=== PATIENT | female | born 1985 | race Two or more races ===

== ENCOUNTER 2024-11-07 14:44 | Emergency (ER) | payer MEDICAID, SELFPAY ==
[2024-11-07 14:44] VITALS: BMI 34.3
--- NOTE | 2024-11-07 14:56 | XR_ITS ---
Examination: CT brain head without contrast. 2-D sagittal coronal reconstructions Date and time of exam:November 07, 2024, 1534 hrs., Comparison February 24, 2020. Indications: Seizure today CTDI: vol (mGy):55.2 DLP: (mGycm):1151 Technique: Multiple CT axial sections of the brain have been obtained, 5 mm slice thickness. Contrast has not been administered. 2-D sagittal, coronal reconstructions have been obtained Low dose protocols were performed. One or more of the following dose reduction techniques were used; automated exposure control, adjustment of the mA and/or KV according to patient size, use of iterative reconstruction technique. Findings: Left temporal bone and right posterior parietal bone craniotomy defects No neural transmitter leads in the temporal lobes with extensive encephalomalacia in the left temporal lobe Numerous artifacts No gross hemorrhage or mass effect Impression: Limited study. No gross hemorrhage or mass effect
--- NOTE | 2024-11-07 14:57 | PD.EDSEIZ ---
ED Seizures RME/HPI General Chief Complaint: Seizure Stated Complaint: 3-4 SEIZURES TODAY Time Seen by Provider: 11/07/24 14:57 Arrival date/time: 11/07/24 14:44 RME / HPI RME / HPI Narrative: DR. 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 Denies history of daily seizures. Denies chest pain, shortness of breath, and abdominal pain. Patient recently moveed from [place], [place] and states that she needs to find a new neurologist. She is currently taking Lamotrigine, Sertraline, Fycompa, Topomax, and Cenobamate. Related Data Previous Rx's ?Medication ?Instructions ?Recorded hcnpnkexim-anwcopxbebhxj-ccmgevps 1 cap PO Q8H PRN pain #30 caps 02/25/20 50 mg-300 mg-40 mg capsule (Fioricet) Allergies Allergy/AdvReac Type Severity Reaction Status Date / Time adhesive tape Allergy Severe Hives Verified 11/07/24 14:48 latex Allergy Severe Hives Verified 11/07/24 14:47 morphine Allergy Severe Swelling Verified 11/07/24 14:47 of Lip/Tongue/Throat Review of Systems Review of Systems Systems Reviewed: All systems reviewed, normal except as documented Past Medical History Past Medical History NEUROLOGIC: Positive Seizures (Pt has Neuropace is a cranial implant) and Epilepsy CARDIAC: Positive Hypertension Surgical History SURGICAL: Positive Neurologic Surgery (hemispherectomy per Pt) Social History SMOKING STATUS: Current every day smoker ED Exam Narrative Physical exam: GEN. APPEARANCE: The patient is alert awake oriented X-3 in no distress, lying down comfortably, does not look ill/toxic. Patient has good eye contact. Patient is cooperative. Slow to respnd, Actively vomiting. Patient is acutely ill-appearing. VITALS: All vitals were reviewed and the pulse ox is 98% on room air which is normal according to my interpretation. HEENT: Normocephalic, atraumatic. Pupils are equal and reactive. Oral mucosa is moist. Patent Nares NECK: Supple, nontender, no thyromegaly, no meningismus, no JVD CHEST: Symmetrical, atraumatic, and with equal expansion , Nontender on palpation no deformity and no crepitus. CARDIOVASCULAR: Heart regular rhythm no murmur or gallop rub or extra beats. LUNGS: Clear to auscultation bilaterally with symmetrical chest rise. No laboring tachypnea or wheezing. No intercostal subcostal retraction. No rales and no rhonchi. ABDOMEN: Soft, flat, nontender to palpation, no guarding or rebound tenderness. There are no abnormal masses palpated. Active and normal bowel sounds. EXTREMITIES: Nontender. No edema. No cyanosis. Patient is able to move all 4 extremities well, with full ROM and good CSM. SKIN: Warm and dry, no jaundice or rashes noted. MUSCULOSKELETAL: No lumbar or midline bony tenderness. There is no CVA tenderness. No paraspinal muscle spasm or tenderness. NEURO: Patient is REID x 4, Cranial nerves II through XII grossly intact. There is no focal neurologic deficits noted. GCS is 15, PNS and HOME APPRAISER appear grossly intact. PSYCHIATRIC: Patient is in normal mood and affect. Course Quality Measures none Orders Category Date Time Status Insert IV NOW Care 11/07/24 15:[address] head/brain wo con Stat Exams 11/07/24 14:56 Completed CBC Stat Lab 11/07/24 15:01 Completed CMP [Comprehensive Metabolic Panel] Stat Lab 11/07/24 15:01 Completed Drug Screen,Urine Stat Lab 11/07/24 17:57 Completed HCG,Qualitative Serum Stat Lab 11/07/24 15:01 Completed Lipase Stat Lab 11/07/24 15:01 Completed UA, C/S IF [Urinalysis, C/S if Indicated] Stat Lab 11/07/24 17:57 Completed Acetaminophen Tab [Tylenol Tab] Med 11/07/24 15:59 Discontinued 650 mg PO X1 ONE Ringers Lactated 1000 ml [Lactated Ringers] 1,000 ml Med 11/07/24 15:59 Discontinued IV 999 mls/hr levETIRAcetam INJ [Keppra Inj] Med 11/07/24 14:56 Discontinued 1,000 mg IVP X1 ONE oxyCODONE/APAP 5/325 [Percocet 5/325] Med 11/07/24 17:35 Discontinued 1 tab PO X1 ONE Vital Signs Vital signs: Vital Signs Temperature 98.7 F 11/07/24 15:09 Pulse Rate 99 11/07/24 15:09 Respiratory Rate 16 11/07/24 15:09 Blood Pressure 127/107 H 11/07/24 15:09 Pulse Oximetry (%) 98 11/07/24 15:09 Oxygen Delivery Method Room Air 11/07/24 15:09 Seizure MDM Narrative MDM Narrative:: Scribe Attestation: I, Geraldine Leahy, am scribing for and in the presence of Dr. Guardado. Provider Notation: Although this document has been carefully reviewed, there may still be some phonetic and other typographical errors. These errors are purely grammatical due to imperfections in the software program and should not be construed in any way to compromise the substance of the patient's medical care during this visit. Patient is in the ED with concern for breakthrough seizure. Has a hx of epilepsy, has been having difficulty taking home medications as she recently moved to the area to help her mother recover from recent NSTEMI following the of her . Ordered CT, labs, provided meds for symptom relief. Workup reassuring. Patient not septic, no evidence of intracranial hemorrhage. Had extensive conversation with patient and her brother at bedside. Brother states he is working on helping to coordinate a PCP and neurologist for patient here in the region. He is doing what he can to help offset the pressures the patient is under at the time. Patient is GCS15, not in any distress. Remained w/o any recurrence of seizure activity while in the ED. Patient data External records reviewed:: [facility] previous records (No recent ED records available for review.) Clinical information provided by:: patient Social determinants that could affect healthcare access:: none Patient has the following chronic illnesses:: Seizures, Epilepsy, Hypertension How is presenting disease/condition affected by chronic disease/condition?: exacerbated by Evaluation data The following diagnostics were reviewed and interpreted by me:: lab results and radiology exam(s) Lab and/or radiology exams considered but not ordered:: None Interpretation Summary: RADIOLOGY Head/Brain CT: Findings: Left temporal bone and right posterior parietal bone craniotomy defects No neural transmitter leads in the temporal lobes with extensive encephalomalacia in the left temporal lobe Numerous artifacts No gross hemorrhage or mass effect Impression: Limited study. No gross hemorrhage or mass effect Medications / Prescriptions Medications or Prescriptions considered but not ordered:: None Medication administrations:: Medication Administration History Discontinued Medications Acetaminophen (Acetaminophen 325 Mg Tablet) 650 mg PO X1 ONE Stop: 11/07/24 16:00 Last Admin: 11/07/24 16:04 Dose: 650 mg Documented By: DIAN Lactated Ringer's (Lactated Ringers) 1,000 mls @ 999 mls/hr IV .Q1H1M ONE Stop: 11/07/24 16:59 Last Admin: 11/07/24 16:09 Dose: 999 mls/hr Documented By: DIAN Levetiracetam (Levetiracetam Inj 100 Mg/Ml Vial 5ml) 1,000 mg IVP X1 ONE Stop: 11/07/24 14:57 Last Admin: 11/07/24 15:08 Dose: 1,000 mg Documented By: DIAN Oxycodone/Acetaminophen (Oxycodone/Apap 5/325 Tablet) 1 tab PO X1 ONE Stop: 11/07/24 17:36 Last Admin: 11/07/24 18:06 Dose: 1 tab Documented By: DIAN See above if any. Consultations Consultation(s) initiated? (list below): No Diagnosis Seizure Differential Diagnosis: intractable seizure disorder, febrile convulsion, focal seizure, generalized seizure, epileptic seizure and status epilepticus Most likely diagnosis given after review of the tests above:: Breakthrough seizure, Headache Admission Indicated Admission indicated?: not indicated Explain why admission is indicated or not indicated:: Patient does not meet admission criteria. Admission Request Was there a request for admission?: No Disposition Plan Disposition Plan: Discharge Discharge Attestation Discharge Attestation: The patient and all family members were given an opportunity to ask questions and understood the discharge instructions. Discharge instructions specifically effects, indications for sooner follow up or return to the emergency department, and the expected course of current diagnosis. Patient condition: Stable Critical Care Time Critical Care Time Critical Care Time: Yes Total Critical Care Time (min.): 45 Attestation: ?I spent 45 minutes of critical care time with this patient not including reportable procedures. There was an acute impairment of an organ system with a high probability of imminent or life threatening deterioration in the patient's condition. Interventions and changes required in the course of therapy are located in the chart. Time involved was spent in direct patient care, reviewing ancillary data, old records, consulting with decision makers, EMS, other doctors, giving orders and documenting. Discharge Plan Plan Patient Disposition: HOME (Self Care) Prescriptions/Referrals Prescriptions/Med Rec: No Action zuvrfowmtv-nypkfrvbvedzl-ehss [Fioricet] 50-300-40 mg capsule 1 cap PO Q8H PRN (Reason: pain) Qty: 30 0RF Referrals: No Primary/Family,Physician [Primary Care Provider] - In 1 week Problem List Clinical Impression: Breakthrough seizure, Headache Patient/Caregiver Discharge Instructions Education Materials: Living Well with Epilepsy, Self-Care for Headaches Additional Instructions: Follow-up with your primary care provider in 1-2 days. Return immediately if symptoms worsen or persist. It is very important that you establish care with a neurologist as quickly as possible. Print Language: Armenian Stand Alone Forms: [employer] Award Info., Patient Portal Info Letter
[2024-11-07] MEDS: levETIRAcetam INJ 100 MG/ML VIAL 5ML 1000 MG IVP (15:08)
[2024-11-07 15:09] VITALS: BP 127/107; PULSE 99; RESP 16; TEMP 37.1; O2SAT 98
[2024-11-07 15:14] LABS: Basophils # (Auto) 0.1 Thou/mm3 (0.0-0.2); Basophils % (Auto) 0 % (0-2.5); Eosinophils # (Auto) 0.0 Thou/mm3 (0.0-0.5); Eosinophils % (Auto) 0 % (0-10); Hematocrit 40.6 % (36.0-46.0); Hemoglobin 13.9 g/dL (12.0-16.0); Immature Granulocytes Auto 0.04 Thou/mm3 (0.00-0.00); Lymphocytes # (Auto) 1.1 Thou/mm3 (1.0-4.8); Lymphocytes % (Auto) 10 % (10-50); Mean Corpuscular HGB Conc 34.2 g/dl (31.0-37.0); Mean Corpuscular Hemoglobin 34.3 pg (25.0-35.0); Mean Corpuscular Volume 100 fL (80-100); Monocytes # (Auto) 0.5 Thou/mm3 (0.0-0.8); Monocytes % (Auto) 4 % (0-12); Neutrophils # (Auto) 9.5 Thou/mm3 (1.8-7.7); Neutrophils % (Auto) 85 % (37-80); Nucleated Red Blood Cell # 0.00 Thou/mm3 (0.00-0.00); Nucleated Red Blood Cell % 0 /100 WBC (0); Platelet Count 354 Thou/mm3 (140-440); RDW Standard Deviation 62.0 fL (36.4-46.3); Red Blood Count 4.05 Miln/mm3 (4.00-5.20); White Blood Count 11.2 Thou/mm3 (3.6-11.0)
--- NOTE | 2024-11-07 15:17 | PC.NURSE ---
SEIZURES PADS PLACED IN RAILS
[2024-11-07] MEDS: ACETAMINOPHEN 325 MG TABLET 650 MG PO (16:04)
[2024-11-07] MEDS: RINGERS LACTATED 1000 ML 1,000 ML 999 ML IV (16:09)
[2024-11-07 16:15] LABS: Alanine Aminotransferase 77 U/L (10-49); Albumin, Serum 4.8 gm/dL (3.5-5.0); Albumin/Globulin Ratio 1.5 (1.2-2.2); Alkaline Phosphatase 108 U/L (46-116); Anion Gap 16 (7-16); Aspartate Amino Transferase 165 U/L (0-34); BUN/Creatinine Ratio 8 Ratio (12-20); Bilirubin,Total 0.4 mg/dL (0.3-1.2); Blood Urea Nitrogen 6 mg/dL (9-23); Calcium 10.4 mg/dL (8.3-10.6); Calcium (Corrected) 10.4 mg/dL (8.5-10.1); Carbon Dioxide 18.6 mMol/L (20.0-31.0); Chloride 103 mMol/L (98-107); Creatinine (Component) 0.8 mg/dL (0.6-1.3); Estimated Creatinine Clearance 101.0 mL/min (>60); Globulin 3.2 gm/dL (2.3-3.5); Glucose 154 mg/dL (74-106); Lipase 67 U/L (12-53); Osmolality,Calculated 276 (275-295); Potassium 4.6 mMol/L (3.4-5.1); Sodium 138 mMol/L (136-145); Total Protein 8.0 gm/dL (5.7-8.2); eGFR > 60 See Note
[2024-11-07 16:40] LABS: HCG,Qualitative Serum Negative
[2024-11-07 17:23] VITALS: BP 133/91; PULSE 80; RESP 18; O2SAT 94
[2024-11-07 17:27] VITALS: TEMP 36.8
[2024-11-07 18:02] LABS: Collection Type, Urine Clean Catch
[2024-11-07 18:10] LABS: Amorphous Crystals,Urine Present (Absent); Bilirubin,Urine Negative (Negative); Blood,Urine Negative (Negative); Clarity,Urine Turbid (Clear/Hazy); Color,Urine Yellow (Lt Yel-Yel); Culture Indicated,Urine Not Indicated; Glucose, Urine Negative (Negative); Ketones,Urine 3+ (Negative); Leukocyte Esterase,Urine Negative (Negative); Nitrite,Urine Negative (Negative); PH,Urine 6.0 (5.0-7.0); Protein,Urine 1+ (Neg - Trace); RBC,Urine 4 /hpf (0-3); Specific Gravity,Urine 1.036 (1.001-1.035); Squamous Epithelial Cell,Urine 11 /hpf (0-5); Urobilinogen,Urine 2.0 mg/dL (0.0-1.0); WBC,Urine 4 /hpf (0-5)
[2024-11-07 18:11] VITALS: BP 154/104; PULSE 78; RESP 24; TEMP 36.6; O2SAT 98
[2024-11-07 18:13] LABS: Amphetamine/Methamp Scrn,U Negative (Negative); Barbiturate Screen,Urine Negative (Negative); Benzodiazepines Screen,Urine Negative (Negative); Benzoylecgonine Screen, Ur Negative (Negative); Fentanyl Screen,Urine Negative (Negative); Opiate Screen,Urine Negative (Negative); THC Screen,Urine Negative (Negative)
[2024-11-07 18:38] VITALS: BP 148/96; PULSE 88; RESP 16; TEMP 36.6; O2SAT 99
== END 2024-11-07 18:39 | disposition home or self-care (01) ==
PROVIDERS: Emergency Provider Emergency Medicine
DX: G40.909 Epilepsy, unspecified, not intractable, without status epilepticus (principal); R51.9 Headache, unspecified; I10 Essential (primary) hypertension; Z79.899 Other long term (current) drug therapy
CPT/HCPCS: 36415; 70450; 80053; 80307; 81001; 83690; 84703; 85025; 96374; 99284; J1953; J7120; A9270

== ENCOUNTER 2024-11-16 21:15 | Emergency (ER) | payer MEDICAID, SELFPAY ==
[2024-11-16 21:17] VITALS: BP 129/79; PULSE 72; RESP 18; TEMP 37; O2SAT 98
--- NOTE | 2024-11-16 21:30 | PD.EDADULT ---
ED General RME/HPI General Chief complaint: Seizure Stated complaint: seizure Time Seen by Provider: 11/16/24 21:28 Arrival date/time: 11/16/24 21:15 CC: Reported 6 seizures HPI patient has a history of seizures takes her medications but is also reported by family to be drinking alcohol today. Patient is awake alert with slurred speech denies any physical pain. EMS report stable vital signs and route. Patient is currently on lamotrigine sertraline Fycompa and Cenobamate. Review the medical record show the patient was here 9 days ago for the same complaint including multiple seizures. Patient moved here from [place] state and is looking for local neurologist. Related Data Home Medications ?Medication ?Instructions ?Recorded ?Confirmed cenobamate 100 mg tablet (Xcopri) 300 mg PO HS 11/17/24 11/17/24 lamotrigine 150 mg tablet 150 mg PO Q12H 11/17/24 11/17/24 perampanel 10 mg tablet (Fycompa) 10 mg PO HS 11/17/24 11/17/24 sertraline 100 mg tablet 100 mg PO QDAY 11/17/24 11/17/24 topiramate 50 mg tablet 50 mg PO Q12H 11/17/24 11/17/24 Previous Rx's ?Medication ?Instructions ?Recorded topiramate 100 mg tablet (Topamax) 100 mg PO BID #60 tabs 11/17/24 Allergies Allergy/AdvReac Type Severity Reaction Status Date / Time adhesive tape Allergy Severe Hives Verified 11/07/24 14:48 latex Allergy Severe Hives Verified 11/07/24 14:47 morphine Allergy Severe Swelling Verified 11/07/24 14:47 of Lip/Tongue/Throat Review of Systems Review of Systems ROS Unobtainable: unobtainable due to medical condition Past Medical History Past Medical History NEUROLOGIC: Positive Seizures (Pt has Neuropace is a cranial implant) and Epilepsy CARDIAC: Positive Hypertension; Negative Congestive Heart Failure RESPIRATORY: Negative Chronic Obstructive Pulmonary Disease (COPD) GENITOURINARY: Negative Renal Disease ENDOCRINE: Negative Diabetes Mellitus Type 1 or Diabetes Mellitus Type 2 Surgical History SURGICAL: Positive Neurologic Surgery (hemispherectomy per Pt) Social History SMOKING STATUS: Current every day smoker ED Exam Narrative Physical exam: [General: Obese, appears not in any acute distress Head normocephalic HEENT: Within acceptable limits Neck is supple nontender Chest equal chest rise nontender to palpation Respiratory: Clear to auscultation no wheezes crackles or rubs CV: Rate rhythm is regular no murmurs rubs or clicks Abdomen is distended secondary to body habitus soft nontender no masses positive bowel sounds all 4 quadrants Back: No CVA tenderness no spinous process tenderness from cervical spine thoracic and lumbar spine Skin: Intact no petechiae rash induration ulceration or crepitus Extremities: Moving all extremity against resistance cap refill less than 2 seconds neurosensory intact Neuro: Awake alert oriented x1, self, slurred speech, Glascow coma 14 no focal deficits] Course Quality Measures none Orders Category Date Time Status Saline [Insert IV] NOW Care 11/16/24 21:28 Active Alcohol, Blood Medical Stat Lab 11/16/24 21:43 Completed B-Type Natriuretic Peptide Stat Lab 11/16/24 21:43 Completed CBC Stat Lab 11/16/24 21:43 Completed Comprehensive Metabolic Panel Stat Lab 11/16/24 21:43 Completed Drug Screen,Urine Stat Lab 11/16/24 22:25 Completed HCG Qualitative,Urine Stat Lab 11/16/24 22:25 Completed Magnesium Stat Lab 11/16/24 21:43 Completed Partial Thromboplastin Time Stat Lab 11/16/24 23:28 Completed Prothrombin Time with INR Stat Lab 11/16/24 23:28 Completed Urinalysis, C/S if Indicated Stat Lab 11/16/24 22:25 Completed Sodium Chloride 0.9% 1000 ml [Ns] 1,000 ml Med 11/16/24 21:29 Discontinued IV 999 mls/hr levETIRAcetam INJ [Keppra Inj] Med 11/16/24 21:49 Discontinued 1,000 mg IVP X1 ONE Vital Signs Vital signs: Vital Signs Temperature 98.6 F 11/16/24 21:17 Pulse Rate 72 11/16/24 21:17 Respiratory Rate 18 11/16/24 21:17 Blood Pressure 129/79 11/16/24 21:17 Pulse Oximetry (%) 98 11/16/24 21:17 Oxygen Delivery Method Room Air 11/16/24 21:17 Discharge Plan Plan Patient Disposition: HOME (Self Care) Prescriptions/Referrals Prescriptions/Med Rec: New topiramate [Topamax] 100 mg tablet 100 mg PO BID Qty: 60 0RF No Action perampanel [Fycompa] 10 mg tablet 10 mg PO HS Xcopri 100 mg tablet 300 mg PO HS lamotrigine 150 mg tablet 150 mg PO Q12H Patient Comments: TAKE 1 TABLET BY MOUTH TWICE DAILY sertraline 100 mg tablet 100 mg PO QDAY topiramate 50 mg tablet 50 mg PO Q12H Patient Comments: TAKE 1 TABLET BY MOUTH TWICE DAILY Referrals: Isaias Bedoya MD [Physician, Neurology] - In 1 week Referral Note: Patient with longstanding seizure disorder with indwelling neurostimulator on multiple medications requiring follow-up. Problem List Clinical Impression: Epilepsy, Alcohol intoxication Patient/Caregiver Discharge Instructions Discharge Activity: activity as tolerated Other Activity Instructions:: Avoid high risk activities i.e. cycling, scooter, activities which potentially can cause head injury Education Materials: Discharge Instructions for Epilepsy, ED Alcohol Intoxication Additional Instructions: Increase Topamax from 50 mg twice daily to 100 mg twice daily. Continue all other anticonvulsants at same dosage. Follow-up with neurologist within 1 to 2 weeks and return if worsening. Additionally ,reduce alcohol consumption. Print Language: Kazakh Stand Alone Forms: [employer] Award Info., Patient Portal Info Letter MDM Clinical Information Provided by patient and EMS Medical Records Reviewed [facility] and EMS Meds/Rx Considered, not Ordered None Labs/Rad/Tests considered, not Ordered None Chronic Illness/Social Conditions Add or document further as needed: Seizure disorder Lab Interpretation Lab(s) interpretation(s): CBC shows no acute leukocytosis anemia thrombocytopenia CMP shows a chloride of 111 CO2 of 17.9 BUN of less than 5. No other electrolyte imbalances. T. bili is unremarkable AST at 132 ALT of 73 alk phos at 80. Alcohol level 309 Medication Administration(s) Medication Administration History Discontinued Medications Sodium Chloride (Ns) 1,000 mls @ 999 mls/hr IV .Q1H1M ONE Stop: 11/16/24 22:29 Last Infusion: 11/16/24 22:50 Dose: Infused Documented By: Admin: 11/16/24 21:44 Dose: 999 mls/hr Documented By: SIERRA Levetiracetam (Levetiracetam Inj 100 Mg/Ml Vial 5ml) 1,000 mg IVP X1 ONE Stop: 11/16/24 21:50 Last Admin: 11/16/24 22:01 Dose: 1,000 mg Documented By: CCT
[2024-11-16] MEDS: SODIUM CHLORIDE 0.9% 1000 ML 1,000 ML 999 ML IV (21:44)
[2024-11-16 21:49] VITALS: PULSE 70; RESP 20; O2SAT 97; BMI 34.3
[2024-11-16 21:59] LABS: Basophils # (Auto) 0.1 Thou/mm3 (0.0-0.2); Basophils % (Auto) 1 % (0-2.5); Eosinophils # (Auto) 0.1 Thou/mm3 (0.0-0.5); Eosinophils % (Auto) 1 % (0-10); Hematocrit 36.0 % (36.0-46.0); Hemoglobin 12.0 g/dL (12.0-16.0); Immature Granulocytes Auto 0.03 Thou/mm3 (0.00-0.00); Lymphocytes # (Auto) 3.2 Thou/mm3 (1.0-4.8); Lymphocytes % (Auto) 36 % (10-50); Mean Corpuscular HGB Conc 33.3 g/dl (31.0-37.0); Mean Corpuscular Hemoglobin 34.4 pg (25.0-35.0); Mean Corpuscular Volume 103 fL (80-100); Monocytes # (Auto) 0.6 Thou/mm3 (0.0-0.8); Monocytes % (Auto) 7 % (0-12); Neutrophils # (Auto) 4.9 Thou/mm3 (1.8-7.7); Neutrophils % (Auto) 55 % (37-80); Nucleated Red Blood Cell # 0.00 Thou/mm3 (0.00-0.00); Nucleated Red Blood Cell % 0 /100 WBC (0); Platelet Count 194 Thou/mm3 (140-440); RDW Standard Deviation 62.4 fL (36.4-46.3); Red Blood Count 3.49 Miln/mm3 (4.00-5.20); White Blood Count 8.9 Thou/mm3 (3.6-11.0)
[2024-11-16] MEDS: levETIRAcetam INJ 100 MG/ML VIAL 5ML 1000 MG IVP (22:01)
[2024-11-16 22:14] LABS: B-Type Natriuretic Peptide 28 pg/mL (0-100)
[2024-11-16 22:24] LABS: Alanine Aminotransferase 73 U/L (10-49); Albumin, Serum 4.3 gm/dL (3.5-5.0); Albumin/Globulin Ratio 1.4 (1.2-2.2); Alcohol, Blood Medical 309.3 mg/dL (0-10.0); Alkaline Phosphatase 80 U/L (46-116); Anion Gap 15 (7-16); Aspartate Amino Transferase 132 U/L (0-34); BUN/Creatinine Ratio 8 Ratio (12-20); Bilirubin,Total 0.2 mg/dL (0.3-1.2); Blood Urea Nitrogen < 5 mg/dL (9-23); Calcium 9.0 mg/dL (8.3-10.6); Calcium (Corrected) 9.0 mg/dL (8.5-10.1); Carbon Dioxide 17.9 mMol/L (20.0-31.0); Chloride 111 mMol/L (98-107); Creatinine (Component) 0.6 mg/dL (0.6-1.3); Estimated Creatinine Clearance 134.6 mL/min (>60); Globulin 3.0 gm/dL (2.3-3.5); Glucose 95 mg/dL (74-106); Magnesium 2.2 mg/dL (1.6-2.6); Osmolality,Calculated 284 (275-295); Potassium 3.8 mMol/L (3.4-5.1); Sodium 144 mMol/L (136-145); Total Protein 7.3 gm/dL (5.7-8.2); eGFR > 60 See Note
[2024-11-16 22:38] LABS: Collection Type, Urine Clean Catch; RBC,Urine 0 /hpf (0-3)
[2024-11-16 22:52] LABS: HCG Qualitative,Urine Negative
[2024-11-16 22:54] LABS: Amphetamine/Methamp Scrn,U Negative (Negative); Barbiturate Screen,Urine Negative (Negative); Benzodiazepines Screen,Urine Negative (Negative); Benzoylecgonine Screen, Ur Negative (Negative); Fentanyl Screen,Urine Negative (Negative); Opiate Screen,Urine Negative (Negative); THC Screen,Urine Negative (Negative)
[2024-11-16 23:00] VITALS: BP 95/58; PULSE 82; RESP 18; TEMP 36.9; O2SAT 97
[2024-11-16 23:12] LABS: Bilirubin,Urine Negative (Negative); Blood,Urine Negative (Negative); Clarity,Urine Clear (Clear/Hazy); Color,Urine Colorless (Lt Yel-Yel); Culture Indicated,Urine Not Indicated; Glucose, Urine Negative (Negative); Ketones,Urine Negative (Negative); Leukocyte Esterase,Urine Negative (Negative); Nitrite,Urine Negative (Negative); PH,Urine 6.0 (5.0-7.0); Protein,Urine Negative (Neg - Trace); Specific Gravity,Urine 1.006 (1.001-1.035); Squamous Epithelial Cell,Urine 1 /hpf (0-5); Urobilinogen,Urine Negative mg/dL (0.0-1.0); WBC,Urine < 1 /hpf (0-5)
[2024-11-16 23:53] LABS: INR 1.0 (0.9-1.3); Partial Thromboplastin Time 25.4 Seconds (22.0-36.0); Prothrombin Time 10.9 Seconds (9.0-12.2)
--- NOTE | 2024-11-17 01:00 | PD.EDADDENDU ---
Emergency Room Addendum Addendum Narrative: 2300: Care assumed from Shahram Castellanos NP (emergency mied-level provider). Past medical, surgical, social and family history reviewed. Vitals and home medications reviewed. Results and treatment plan discussed. I will assume the care of the patient at this time and will follow the patient, pending reassessment and final disposition. The following addendum documentation note is intended to reflect any pending information, findings, or radiology results not included in the patient?s initial chart by the previous shift scribe. Assuming care of this 38 y/o female with long-standing history of seizure disorder who is on multiple seizure medications. Patient was seen on 11/07/2024 for possible breakthrough seizure activity. Who underwent Ct of the brain which was without evidence of acute process and after period of observation discharge under own accord. Now presenting with recurrent seizure with significant recent psycho-social stressors. Patient apparently drinking throughout the lorraine and appeared to be inebriated upon presentation. Basic workup conducted including CBC, serum chemistries, UA, and Toxicology screen, all were unremarkable with the exception of ethanol 309.3 and MCV 103. Upon direct query patient states she can abstain from long periods of time without alcohol without withdrawal. Patient observed for extended period of time and currently appropriately interacting. Will review current anti-convulsant medication list and consider adjustment while referring for outpatient neurological evaluation as patient has a brain stimulator in place and will require close F/U. Patient remained seizure-free throughout ED course. Will increase Topiramate 50 mg BID to 100 mg BID. I have spoken with the patient and discussed today?s findings, in addition to providing specific details for the plan of care. Questions are answered and there is an agreement with the plan. Re-assessment at the time of disposition demonstrates that the patient is in no acute distress. The patient has remained stable throughout the entire ED visit and is without objective evidence for acute process requiring urgent intervention or hospitalization. The patient is stable for discharge; counseling is provided and documented as above, discussed symptomatic treatment and specific conditions for return.
[2024-11-17 02:40] VITALS: BP 108/73; PULSE 69; RESP 17; TEMP 36.8; O2SAT 98
[2024-11-17 06:00] VITALS: BP 110/76; PULSE 70; RESP 18; TEMP 36.6; O2SAT 95
[2024-11-17 07:08] VITALS: BP 141/88; PULSE 68; RESP 18; TEMP 36.9; O2SAT 97
== END 2024-11-17 07:08 | disposition home or self-care (01) ==
LOC: SERX 11-17 03:52
PROVIDERS: Registered Nurse General Practice; Emergency Provider Emergency Medicine
DX: G40.909 Epilepsy, unspecified, not intractable, without status epilepticus (principal); F10.129 Alcohol abuse with intoxication, unspecified; Y90.8 Blood alcohol level of 240 mg/100 ml or more
CPT/HCPCS: 36415; 80053; 80307; 80320; 81001; 81025; 83735; 83880; 85025; 85610; 85730; 96374; 99283; J1953; J7030; G0480

== ENCOUNTER 2024-11-21 12:30 | Emergency (ER) | payer MEDICAID, SELFPAY ==
[2024-11-21] VITALS (7 sets, daily range): BP systolic 123–167; BP diastolic 72–99; PULSE 66–93; RESP 16–20; TEMP 36.7–37.1; O2SAT 97–100; BMI 34.3
--- NOTE | 2024-11-21 12:46 | PC.NURSE ---
Patient to ER s/p seizure at home witnessed by family no trauma, h/o sz. Currently patient alert and oriented x 4, c/o 9/10 generalized headache. Patient states she has shunt in her brain and has had partial temporal lobe removed. In addition, patient was seen on with seizure activity and had trauma at that time. Patient noted to have bruising and abrasion to right forehead, Dr. Guzman at bedside to evalulate patient.
--- NOTE | 2024-11-21 12:48 | EDNOTE_ITS ---
ED Seizures RME/HPI General Chief Complaint: Seizure Stated Complaint: SEIZURE Time Seen by Provider: 11/21/24 12:36 Arrival date/time: 11/21/24 12:30 Limitations: no limitations RME / HPI RME / HPI Narrative: DR. GUZMAN MAIN ED EVALUATION: 39-year-old female with past medical history of seizures presents to the Emergency Department status post seizure lasting approximately 3 minutes. She denies trauma today; however, she has an old bruise on the right forehead and a bump on the left arm from a prior seizure on November 17. She reports occasional alcohol use and nicotine vaping, previously a smoker. She denies headache or other acute symptoms. Related Data Home Medications ?Medication ?Instructions ?Recorded ?Confirmed cenobamate 100 mg tablet (Xcopri) 300 mg PO HS 5 11/17/24 lamotrigine 150 mg tablet 150 mg PO Q12H 11/17/2411/02 perampanel 10 mg tablet (Fycompa) 10 mg PO HS 11/17/24 11/17/24 sertraline 100 mg tablet 100 mg PO QDAY 11/17/2411/02 topiramate 50 mg tablet 50 mg PO Q12H 11/17/2411/17 Previous Rx's ?Medication ?Instructions ?Recorded topiramate 100 mg tablet (Topamax) 100 mg PO BID #60 t abs 11/17/24 Allergies Allergy/AdvReac Type Severity Reaction Status Date / Time adhesive tape Allergy Severe Hives Verified 11/21/24 13:12 latex Allergy Severe Hives Verified 11/21/24 13:12 morphine Allergy Severe Swelling Verified 11/21/24 13:12 of Lip/Tongue/Throat Review of Systems Review of Systems Systems Reviewed: All systems reviewed, normal except as documented Past Medical History Past Medical History NEUROLOGIC: Positive Neurological Disorders, Seizures and Epilepsy CARDIAC: Positive Cardiac Disorders and Hypertension Surgical History SURGICAL: Positive Neurologic Surgery Social History SMOKING STATUS: Current some day smoker (nicotine vaping, previously a smoker) SUBSTANCE USE: does not use ALCOHOL: Current (occasional alcohol use) ED Exam General Limitations: Present no limitations General appearance: Present alert, in no apparent distress and other (Slowed, halting speech but intact ability to form words and sentences) Head Head exam: Present other (right occipital shunt in place; healing right forehead ecchymosis) Eye Eye exam: Present normal appearance, PERRL and EOMI ENT ENT exam: Present normal exam, normal oropharynx and mucous membranes moist Neck Neck exam: Present normal inspection, full ROM and trachea midline Chest Chest inspection: Present normal inspection and symmetric chest wall rise Respiratory Respiratory exam: Present normal lung sounds bilaterally Cardiovascular Cardiovascular exam: Present regular rate, normal rhythm and normal heart sounds Abdominal Exam Abdominal exam: Present soft and normal bowel sounds Extremities Exam Extremities exam: Present full ROM and other (bump on the left arm) Back Exam Back exam: Present normal inspection and full ROM Neurological Exam Neurological exam: Present other (Slowed, halting speech but intact ability to form words and sentences) Psychiatric Psychiatric exam: Present normal affect and normal mood Skin Skin exam: Present warm, dry, intact and normal color Course Quality Measures none Orders Category Date Time Status Roofer Applicator NOW Care 11/21/24 12:47 Active Continuous Pulse Oximetry NOW Care 11/21/24 12:47 Completed Insert IV NOW Care 11/21/24 12:47 Active Seizure precautions NOW Care 11/21/24 13:04 Active Splint / Immobilizer STAT Care 11/21/24 17:[address] wrist LT wo con Stat Exams 11/21/24 15:30 Completed XR chest 1V portable Stat Exams 11/21/24 12:47 Completed XR wrist comp LT min 3V Stat Exams 11/21/24 12:48 Completed CBC Stat Lab 11/21/24 12:58 Completed Comprehensive Metabolic Panel Stat Lab 11/21/24 12:58 Completed HCG Qualitative,Urine Stat Lab 11/21/24 13:20 Completed Prothrombin Time with INR Stat Lab 11/21/24 12:58 Completed Urinalysis Stat Lab 11/21/24 13:20 Completed Acetaminophen Tab [Tylenol Tab] Med 11/21/24 15:29 Discontinued 650 mg PO X1 ONE Ketorolac Inj [Toradol Inj] Med 11/21/24 16:41 Discontinued 15 mg IVP X1 ONE Sodium Chloride 0.9% 1000 ml [Ns] 1,000 ml Med 11/21/24 12:47 Discontinued IV 999 mls/hr levETIRAcetam INJ [Keppra Inj] Med 11/21/24 12:47 Discontinued 1,000 mg IVP X1 ONE Oxygen Delivery NOW RT 11/21/24 12:47 Active Vital Signs Vital signs: Vital Signs Temperature 98.0 F 11/21/24 12:31 Pulse Rate 93 11/21/24 12:31 Respiratory Rate 18 11/21/24 12:31 Blood Pressure 167/99 H 11/21/24 12:31 Pulse Oximetry (%) 99 11/21/24 12:31 Oxygen Delivery Method Nasal Cannula 11/21/24 12:31 Oxygen Flow Rate 1 11/21/24 12:31 PROCEDURES: Splint Fabrication: Pre-Fabricated Type: Other (left arm splint) Reason for Splint: Pain Management and Minimize Deformities Circulation Distal to Splint: Yes Movement Distal to Splint: Yes Senation Distal to Splint: Yes Tolerance: Tolerates Well Seizure MDM Narrative MDM Narrative:: I, Leann Whalen, am scribing for and in the presence of Dr. Guzman. Patient data External records reviewed:: [facility] previous records and EMS form Clinical information provided by:: patient and EMS Social determinants that could affect healthcare access:: other (specify) (occasional alcohol use and nicotine vaping, previously a smoker) Patient has the following chronic illnesses:: seizures How is presenting disease/condition affected by chronic disease/condition?: exacerbated by Evaluation data The following diagnostics were reviewed and interpreted by me:: lab results and radiology exam(s) Lab and/or radiology exams considered but not ordered:: none Interpretation Summary: Procedure(s): XR chest 1V portable Accession Number(s): [id number] cc: Josh Guzman MD; Tristan Acosta MD~ Examination: AP chest single view Technique: AP portable upright chest single view Date and time: November 21, 2024, 1305 hrs. Indications: Coughing today. Findings: Mild prominence left ventricle. No pneumonia or pulmonary edema Impression: No pneumonia identified. Dictated By: Tristan Acosta MD Procedure(s): XR wrist comp LT min 3V Accession Number(s): [id number] cc: Josh Guzman MD; Tristan Acosta MD~ Examination: Wrist, left 3 views Technique: Wrist AP, oblique, lateral 3 views Date and time of exam: November 21, 2024, 1306 hrs. Indications: Injury to the wrist today, wrist pain Findings: No definite acute fracture Suspicious for lunate capitate dislocation No foreign body Impression: Recommend CT wrist without contrast follow-up to exclude carpal dislocation and to better assess the deformed lunate Dictated By: Tristan Acosta MD Procedure(s): CT wrist LT wo con Accession Number(s): [id number] cc: Josh Guzman MD; Tristan Acosta MD; NO PRIMARY/FAMILY,PHYSICIAN~ Examination: CT left breast, without contrast. 2-D sagittal reconstructions. 2-D coronal reconstructions. 3-D reconstructions. Date and time of exam:Injury to the wrist today with pain CTDI: vol (mGy):4.02 DLP: (mGycm):83.3 Technique: Multiple 1.25 mm axial sections of the left wrist without intravenous contrast have been obtained. 2-D sagittal and coronal reconstructions have been obtained. 3-D reconstructions have been obtained. Low dose protocols were performed. One or more of the following dose reduction techniques were used; automated exposure control, adjustment of the mA and/or KV according to patient size, use of iterative reconstruction technique. Findings: Distal radius distal ulna intact Fractures of the lunate without significant displacement Metacarpal bases appear intact The lunate fractures show comminution, sagittal image 32 and the capitate is indenting the fractured lunate but no dislocation Impression: Prominently comminuted fractures of the lunate Dictated By: Tristan Acosta MD Medications / Prescriptions Medications or Prescriptions considered but not ordered:: none Medication administrations:: Medication Administration History Discontinued Medications Acetaminophen (Acetaminophen 325 Mg Tablet) 650 mg PO X1 ONE Stop: 11/21/24 15:30 Last Admin: 11/21/24 15:34 Dose: 650 mg Documented By: RAMOS Sodium Chloride (Ns) 1,000 mls @ 999 mls/hr IV .Q1H1M ONE Stop: 11/21/24 13:47 Last Infusion: 11/21/24 14:18 Dose: Infused Documented By: Admin: 11/21/24 13:06 Dose: 999 mls/hr Documented By: RAMOS Ketorolac Tromethamine (Ketorolac Inj 30 Mg/Ml Vial) 15 mg IVP X1 ONE Stop: 11/21/24 16:42 Last Admin: 11/21/24 17:42 Dose: 15 mg Documented By: RAMOS Levetiracetam (Levetiracetam Inj 100 Mg/Ml Vial 5ml) 1,000 mg IVP X1 ONE Stop: 11/21/24 12:48 Last Admin: 11/21/24 13:13 Dose: 1,000 mg Documented By: RAMOS see above if any Consultations Consultation(s) initiated? (list below): No Diagnosis Seizure Differential Diagnosis: other (Breakthrough seizure, postictal state, and shunt malfunction.) Most likely diagnosis given after review of the tests above:: Prominently comminuted fractures of the lunate Epileptic seizure Admission Indicated Admission indicated?: not indicated Admission Request Was there a request for admission?: No Disposition Plan Disposition Plan: Discharge Discharge Attestation Discharge Attestation: The patient and all family members were given an opportunity to ask questions and understood the discharge instructions. Discharge instructions specifically effects, indications for sooner follow up or return to the emergency department, and the expected course of current diagnosis. Patient condition: Stable Discharge Plan Plan Patient Disposition: HOME (Self Care) Patient condition on transfer: Stable Prescriptions/Referrals Prescriptions/Med Rec: No Action perampanel [Fycompa] 10 mg tablet 10 mg PO HS Xcopri 100 mg tablet 300 mg PO HS lamotrigine 150 mg tablet 150 mg PO Q12H Patient Comments: TAKE 1 TABLET BY MOUTH TWICE DAILY sertraline 100 mg tablet 100 mg PO QDAY topiramate 50 mg tablet 50 mg PO Q12H Patient Comments: TAKE 1 TABLET BY MOUTH TWICE DAILY topiramate [Topamax] 100 mg tablet 100 mg PO BID Qty: 60 0RF Referrals: No Primary/Family,Physician [Primary Care Provider] - In 1 week Problem List Clinical Impression: Left lunate fracture, Epileptic seizure Impression comment: Prominently comminuted fractures of the lunate Patient/Caregiver Discharge Instructions Discharge Activity: activity as tolerated Other Activity Instructions:: No use of the left arm Education Materials: Self-Care for Epilepsy, Living Well with Epilepsy, ED Fracture, Upper Extremity Additional Instructions: Please see your primary care doctor for a referral to an orthopedist. You have a left hand fracture of the lunate bone. Please take Tylenol 500 mg 1 to 2 tablets every 6 hours as needed for pain. You can also take Advil gelcaps 200 mg 2 gelcaps every 6 hours with the Tylenol for more effective pain control. Otherwise please continue your usual medicines including your seizure medicines. Print Language: Lao Stand Alone Forms: [employer] Award Info., Patient Portal Info Letter
[2024-11-21] MEDS: SODIUM CHLORIDE 0.9% 1000 ML 1,000 ML 999 ML IV (13:06)
--- NOTE | 2024-11-21 13:08 | PC.NURSE ---
Xray at bedside.
[2024-11-21] MEDS: levETIRAcetam INJ 100 MG/ML VIAL 5ML 1000 MG IVP (13:13)
[2024-11-21 13:18] LABS: Basophils # (Auto) 0.1 Thou/mm3 (0.0-0.2); Basophils % (Auto) 1 % (0-2.5); Eosinophils # (Auto) 0.0 Thou/mm3 (0.0-0.5); Eosinophils % (Auto) 0 % (0-10); Hematocrit 36.0 % (36.0-46.0); Hemoglobin 12.4 g/dL (12.0-16.0); Immature Granulocytes Auto 0.04 Thou/mm3 (0.00-0.00); Lymphocytes # (Auto) 1.5 Thou/mm3 (1.0-4.8); Lymphocytes % (Auto) 16 % (10-50); Mean Corpuscular HGB Conc 34.4 g/dl (31.0-37.0); Mean Corpuscular Hemoglobin 34.9 pg (25.0-35.0); Mean Corpuscular Volume 101 fL (80-100); Monocytes # (Auto) 0.5 Thou/mm3 (0.0-0.8); Monocytes % (Auto) 5 % (0-12); Neutrophils # (Auto) 7.5 Thou/mm3 (1.8-7.7); Neutrophils % (Auto) 78 % (37-80); Nucleated Red Blood Cell # 0.00 Thou/mm3 (0.00-0.00); Nucleated Red Blood Cell % 0 /100 WBC (0); Platelet Count 197 Thou/mm3 (140-440); RDW Standard Deviation 58.8 fL (36.4-46.3); Red Blood Count 3.55 Miln/mm3 (4.00-5.20); White Blood Count 9.7 Thou/mm3 (3.6-11.0)
[2024-11-21 13:29] LABS: INR 1.0 (0.9-1.3); Prothrombin Time 10.8 Seconds (9.0-12.2)
[2024-11-21 13:35] LABS: Alanine Aminotransferase 63 U/L (10-49); Albumin, Serum 4.3 gm/dL (3.5-5.0); Albumin/Globulin Ratio 1.6 (1.2-2.2); Alkaline Phosphatase 84 U/L (46-116); Anion Gap 15 (7-16); Aspartate Amino Transferase 122 U/L (0-34); BUN/Creatinine Ratio 7 Ratio (12-20); Bilirubin,Total 0.7 mg/dL (0.3-1.2); Blood Urea Nitrogen < 5 mg/dL (9-23); Calcium 9.4 mg/dL (8.3-10.6); Calcium (Corrected) 9.4 mg/dL (8.5-10.1); Carbon Dioxide 17.8 mMol/L (20.0-31.0); Chloride 104 mMol/L (98-107); Creatinine (Component) 0.7 mg/dL (0.6-1.3); Estimated Creatinine Clearance 115.4 mL/min (>60); Globulin 2.7 gm/dL (2.3-3.5); Glucose 103 mg/dL (74-106); Osmolality,Calculated 271 (275-295); Potassium 4.1 mMol/L (3.4-5.1); Sodium 137 mMol/L (136-145); Total Protein 7.0 gm/dL (5.7-8.2); eGFR > 60 See Note
[2024-11-21 13:49] LABS: Collection Type, Urine Clean Catch
[2024-11-21 14:12] LABS: Bacteria,Urine Rare; Bilirubin,Urine Negative (Negative); Blood,Urine Negative (Negative); Clarity,Urine Turbid (Clear/Hazy); Color,Urine Yellow (Lt Yel-Yel); Glucose, Urine Negative (Negative); Ketones,Urine 4+ (Negative); Leukocyte Esterase,Urine Negative (Negative); Nitrite,Urine Negative (Negative); PH,Urine 6.0 (5.0-7.0); Protein,Urine 1+ (Neg - Trace); RBC,Urine 3 /hpf (0-3); Specific Gravity,Urine 1.024 (1.001-1.035); Squamous Epithelial Cell,Urine 15 /hpf (0-5); Urobilinogen,Urine Negative mg/dL (0.0-1.0); WBC,Urine 2 /hpf (0-5)
[2024-11-21 14:33] LABS: HCG Qualitative,Urine Negative
--- NOTE | 2024-11-21 15:29 | PC.NURSE ---
Patient c/o 9/10 generalized head pain. Patient requesting pain medication and wants something to eat, Dr. Guzman made aware, new orders received and ok for patient to eat.
--- NOTE | 2024-11-21 15:30 | XR_ITS ---
Examination: CT left breast, without contrast. 2-D sagittal reconstructions. 2-D coronal reconstructions. 3-D reconstructions. Date and time of exam:Injury to the wrist today with pain CTDI: vol (mGy):4.02 DLP: (mGycm):83.3 Technique: Multiple 1.25 mm axial sections of the left wrist without intravenous contrast have been obtained. 2-D sagittal and coronal reconstructions have been obtained. 3-D reconstructions have been obtained. Low dose protocols were performed. One or more of the following dose reduction techniques were used; automated exposure control, adjustment of the mA and/or KV according to patient size, use of iterative reconstruction technique. Findings: Distal radius distal ulna intact Fractures of the lunate without significant displacement Metacarpal bases appear intact The lunate fractures show comminution, sagittal image 32 and the capitate is indenting the fractured lunate but no dislocation Impression: Prominently comminuted fractures of the lunate
[2024-11-21] MEDS: ACETAMINOPHEN 325 MG TABLET 650 MG PO (15:34)
--- NOTE | 2024-11-21 15:37 | PC.NURSE ---
Patient provided with sandwich and water.
[2024-11-21] MEDS: KETOROLAC INJ 30 MG/ML VIAL 15 MG IVP (17:42)
== END 2024-11-21 19:15 | disposition home or self-care (01) ==
PROVIDERS: Emergency Provider Family Medicine
DX: S62.122A Displaced fracture of lunate [semilunar], left wrist, initial encounter for closed fracture (principal); G40.909 Epilepsy, unspecified, not intractable, without status epilepticus; I10 Essential (primary) hypertension; F17.290 Nicotine dependence, other tobacco product, uncomplicated; Z91.040 Latex allergy status; Z88.5 Allergy status to narcotic agent; Z91.048 Other nonmedicinal substance allergy status; X58.XXXA Exposure to other specified factors, initial encounter; Y92.009 Unspecified place in unspecified non-institutional (private) residence as the place of occurrence of the external cause
CPT/HCPCS: 29125; 36415; 71045; 73110; 73200; 80053; 81001; 81025; 85025; 85610; 96361; 96374; 96375; 99284; J1885; J1953; J7030; A9270

== ENCOUNTER 2024-11-21 23:39 | Emergency (ER) | payer MEDICAID, SELFPAY ==
[2024-11-21 23:47] VITALS: PULSE 58; O2SAT 99; BMI 34.3
--- NOTE | 2024-11-21 23:50 | EDNOTE_ITS ---
ED Seizures RME/HPI General Chief Complaint: Seizure Stated Complaint: AMS Time Seen by Provider: 11/21/24 23:49 Source: EMS Arrival date/time: 11/21/24 23:39 Mode of arrival: EMS Limitations: no limitations RME / HPI RME / HPI Narrative: Mr. Molina is a 39-year-old female with past medical history of seizures and alcohol abuse who presented to [facility] emergency department with a chief complaint of seizure episode. Patient was seen earlier this morning for another seizure episode earlier this morning, was noted to have comminuted fracture of the lunate. Patient later went home had another seizure episode and presented back to the ER for further workup. Patient has history of multiple seizure episodes, was seen twice earlier this month for similar episode and medication was adjusted by ER physician on 11/16 however patient continues to have seizure episodes. Patient recently moved from [facility] and has not been established with a neurologist. Related Data Home Medications ?Medication ?Instructions ?Recorded ?Confirmed cenobamate 100 mg tablet (Xcopri) 300 mg PO HS 5 11/22/24 lamotrigine 150 mg tablet 150 mg PO Q12H 11/17/2411/03 perampanel 10 mg tablet (Fycompa) 10 mg PO HS 11/17/24 11/22/24 sertraline 100 mg tablet 100 mg PO QDAY 11/17/2411/03 cholecalciferol (vitamin D3) 50 50 mcg PO QDAY 5 11/22/24 mcg (2,000 unit) capsule (Vitamin D3) Previous Rx's ?Medication ?Instructions ?Recorded topiramate 100 mg tablet (Topamax) 100 mg PO BID #60 t abs 11/17/24 Allergies Allergy/AdvReac Type Severity Reaction Status Date / Time adhesive tape Allergy Severe Hives Verified 11/21/24 13:12 latex Allergy Severe Hives Verified 11/21/24 13:12 morphine Allergy Severe Swelling Verified 11/21/24 13:12 of Lip/Tongue/Throat Review of Systems Review of Systems Systems Reviewed: All systems reviewed, normal except as documented Past Medical History Past Medical History NEUROLOGIC: Positive Neurological Disorders, Seizures and Epilepsy CARDIAC: Positive Cardiac Disorders and Hypertension Surgical History SURGICAL: Positive Neurologic Surgery Social History SMOKING STATUS: Current some day smoker (nicotine vaping, previously a smoker) SUBSTANCE USE: does not use ALCOHOL: Current (occasional alcohol use) ED Exam General Limitations: Present no limitations General appearance: Present alert, in no apparent distress and other (Slowed, halting speech but intact ability to form words and sentences) Head Head exam: Present other (right occipital shunt in place; healing right forehead ecchymosis) Eye Eye exam: Present normal appearance, PERRL and EOMI ENT ENT exam: Present normal exam, normal oropharynx and mucous membranes moist Neck Neck exam: Present normal inspection, full ROM and trachea midline Chest Chest inspection: Present normal inspection and symmetric chest wall rise Respiratory Respiratory exam: Present normal lung sounds bilaterally Cardiovascular Cardiovascular exam: Present regular rate, normal rhythm and normal heart sounds Abdominal Exam Abdominal exam: Present soft and normal bowel sounds Extremities Exam Extremities exam: Present full ROM and other (left arm splint) Back Exam Back exam: Present normal inspection and full ROM Neurological Exam Neurological exam: Present other (Slowed, halting speech but intact ability to form words and sentences) Psychiatric Psychiatric exam: Present normal affect and normal mood Skin Skin exam: Present warm, dry, intact and normal color Course Quality Measures none Orders Category Date Time Status Pe Electrical Engineer Q4H START 00 Care 11/21/24 23:53 Active Continuous Pulse Oximetry NOW Care 11/21/24 23:53 Completed EKG (ED ONLY) *Do not use* NOW Care 11/21/24 23:53 Completed Fingerstick [Bedside Blood Glucose] NOW Care 11/21/24 23:58 Active In and Out Catheter X1 Care 11/22/24 00:11 Completed Insert IV NOW Care 11/21/24 23:53 Active Nurse Swallow Screen X1 Care 11/22/24 00:01 Active Seizure precautions NOW Care 11/22/24 00:01 Active CXRP [XR chest 1V portable] Stat Exams 11/21/24 23:57 Taken EKG (ED Only) Stat Exams 11/21/24 23:53 Ordered Alcohol, Blood Medical Stat Lab 11/21/24 23:50 Completed CBC Stat Lab 11/21/24 23:50 Completed CK [Creatine Kinase] Stat Lab 11/21/24 23:50 Completed CMP [Comprehensive Metabolic Panel] Stat Lab 11/21/24 23:50 Completed Drug Screen,Urine Stat Lab 11/22/24 00:12 Completed INR [Prothrombin Time with INR] Stat Lab 11/21/24 23:50 Completed Lactate (Lactic Acid) Stat Lab 11/21/24 23:50 Completed Lactic Acid, 3 HR Stat Lab 11/22/24 03:43 Completed Magnesium Stat Lab 11/21/24 23:50 Completed PTT [Partial Thromboplastin Time] Stat Lab 11/21/24 23:50 Completed Phosphorous Stat Lab 11/21/24 23:50 Completed Procalcitonin Stat Lab 11/21/24 23:50 Completed Urinalysis Stat Lab 11/22/24 00:12 Completed VBG [Venous Blood Gas] Stat Lab 11/21/24 23:50 Completed Acetaminophen Tab [Tylenol ES Tab] Med 11/22/24 00:02 Discontinued 500 mg PO X1 ONE Cenobamate Med 11/22/24 03:21 Pending 300 mg PO X1 ONE Folic Acid Inj Med 11/22/24 01:28 Discontinued 1 mg IVP X1 ONE HYDROcodone*/APAP 5/325 [Roff 5/325] Med 11/22/24 02:07 Pending 1 tab PO X1 ONE Naph,Kp Mbdb [Neutra-Phos Pkt] Med 11/22/24 01:30 Active 1 packet PO BID POTASSIUM CHL 10 mEq IVPB [Kcl Ivpb] Med 11/22/24 00:46 Discontinued 10 meq in 100 ml IV Q1H POTASSIUM CHL 10 mEq IVPB [Kcl Ivpb] Med 11/22/24 01:27 Discontinued 10 meq in 100 ml IV Q1H Perampanel Med 11/22/24 03:22 Pending 10 mg PO X1 ONE Potassium Chloride [K-Dur] Med 11/22/24 00:45 Discontinued 40 meq PO X1 ONE Potassium Phos [KPhos Additive] 22.5 mmol Med 11/22/24 00:47 Discontinued Sodium Chloride 0.9% 500 ml [Ns] 500 ml IV X1 Sertraline HCl [Zoloft] Med 11/22/24 09:00 Active 100 mg PO QDAY Sodium Chloride 0.9% 1000 ml [Ns] 1,000 ml Med 11/22/24 02:24 Active IV 100 mls/hr Sodium Chloride 0.9% 1000 ml [Ns] 1,000 ml Med 11/21/24 23:56 Discontinued IV 999 mls/hr Thiamine Inj [Vitamin B-1 Inj] Med 11/22/24 01:28 Discontinued 100 mg IVP X1 ONE Topiramate [Topamax] Med 11/22/24 02:45 Active 100 mg PO BID cenobamate [Xcopri] Med 11/22/24 02:30 Discontinued 300 mg PO HS lamoTRIgine [LaMICtal] Med 11/22/24 02:45 Active 150 mg PO Q12H levETIRAcetam INJ [Keppra Inj] Med 11/21/24 23:53 Discontinued 1,000 mg IVP X1 ONE perampanel [Fycompa] Med 11/22/24 02:35 Discontinued 10 mg PO HS Vital Signs Vital signs: Vital Signs Temperature 97.8 F 11/21/24 23:53 Pulse Rate 58 L 11/21/24 23:53 Respiratory Rate 16 11/21/24 23:53 Blood Pressure 126/100 H 11/21/24 23:53 Pulse Oximetry (%) 97 11/21/24 23:53 Oxygen Delivery Method Room Air 11/21/24 23:53 Seizure MDM Narrative MDM Narrative:: #Breakthrough Seizure #Seizure Disorder #Comminuted Lunate fracture #Hypokalemia #Hypophosphatemia #Transaminitis #Alcohol use disorder 39-year-old female with past medical history of seizures and alcohol abuse seen for seizure episode. Patient was seen earlier this morning for another seizure episode earlier this morning, was noted to have comminuted fracture of the lunate. Patient later went home had another seizure episode and presented back to the ER for further workup. Patient has history of multiple seizure episodes, was seen twice earlier this month for similar episode and medication was adjusted by ER physician on 11/16 however patient continues to have seizure episodes. Patient recently moved from [facility] and has not been established with a neurologist. Workup: CBC: WBC 9.6, hemoglobin 11.6 hematocrit 33.9, platelet 208 Coags INR 1.0 PTT APTT normal VBG pH 7.46 pCO2 24 pO2 106 Chemistry sodium 139 potassium 2.9 bicarb 16.3 BUN 8 creatinine 0.6 GFR greater than 60 glucose 87 lactic acid 2.7 phosphorus 1.9 corrected calcium 9.1 magnesium 1.7, AST 82 ALT 50 total CK1 1 1, alk phos 74, Pro-Derick 0.11 Urinalysis shows ketones 2+ otherwise unremarkable U tox negative, blood alcohol level 68.6 EKG Sinus rate 80 Chest x-ray negative for any acute pneumonia Patient was given Keppra 1000 mg x 1, 1 L NS bolus 500 Tylenol p.o. x 1, 40 mEq of potassium 20 mEq IV thiamine 100 mg and folic acid 1 mg IV push x 1 0155 discussed with hospitalist team, further comminuted fracture of jairon hospitalist team is requesting orthopedic consult as Ortho was not available at this facility will reach out to other facilities. Wrist CT 11/21: Prominently comminuted fractures of the lunate Patient was given her home medication perampanel, lamotrigine, topiramate and Xcopri Case discussed with hospitalist team and attending physician Dr. Champion, as patient has blood alcohol level positive there is a concern that her alcohol use is triggering seizure episodes. Case was sent to [facility] for outpatient orthopedic referral per transfer center [facility] patient does not need emergent transfer and they will provide outpatient resources. Patient will be discharged home to follow-up with [facility] where she will be referred to neurology and orthopedic surgery as needed. Patient encouraged to quit alcohol Case discussed with Attending Physician Dr.Kim Shawn Arroyo MD Internal Medicine PGY-2 Disclaimer: This note was dictated by speech recognition. Minor errors in steam distribution supervisor may be present due to voice recognition software. Patient data External records reviewed:: [facility] previous records and EMS form Clinical information provided by:: patient Social determinants that could affect healthcare access:: alcohol use Patient has the following chronic illnesses:: as Above How is presenting disease/condition affected by chronic disease/condition?: exacerbated by Evaluation data The following diagnostics were reviewed and interpreted by me:: lab results, radiology exam(s) and EKG tracing(s) Lab and/or radiology exams considered but not ordered:: None Interpretation Summary: CBC: WBC 9.6, hemoglobin 11.6 hematocrit 33.9, platelet 208 Coags INR 1.0 PTT APTT normal VBG pH 7.46 pCO2 24 pO2 106 Chemistry sodium 139 potassium 2.9 bicarb 16.3 BUN 8 creatinine 0.6 GFR greater than 60 glucose 87 lactic acid 2.7 phosphorus 1.9 corrected calcium 9.1 magnesium 1.7, AST 82 ALT 50 total CK1 1 1, alk phos 74, Pro-Derick 0.11 Urinalysis shows ketones 2+ otherwise unremarkable U tox negative, blood alcohol level 68.6 EKG Sinus rate 80 Chest x-ray negative for any acute pneumonia Medications / Prescriptions Medications or Prescriptions considered but not ordered:: None Medication administrations:: Medication Administration History Hydrocodone Bitart/Acetaminophen (Hydrocodone/Apap 5/325 Tablet) 1 tab PO X1 ONE Stop: 11/22/24 02:08 Sodium Chloride (Ns) 1,000 mls @ 100 mls/hr IV .Q10H ONE Stop: 11/22/24 12:23 Last Admin: 11/22/24 02:35 Dose: 100 mls/hr Documented By: MADISON Lamotrigine (Lamotrigine 100 Mg Tablet) 150 mg PO Q12H NGUYỄN Stop: 12/22/24 02:44 Last Admin: 11/22/24 03:14 Dose: Not Given Documented By: MADISON Non-Admin Reason: Other, see note Non-Formulary Medication (Cenobamate) 300 mg PO X1 ONE Stop: 11/22/24 03:22 Last Admin: 11/22/24 03:25 Dose: Not Given Documented By: MADISON Non-Admin Reason: Other, see note Non-Formulary Medication (Perampanel) 10 mg PO X1 ONE Stop: 11/22/24 03:23 Last Admin: 11/22/24 03:25 Dose: Not Given Documented By: MADISON Non-Admin Reason: Other, see note Potassium Phos/Sodium Phos (N[facility] Mbdb 1 Packet (1.5 Gm)) 1 packet PO BID NGUYỄN Stop: 11/22/24 09:01 Last Admin: 11/22/24 02:23 Dose: 1 packet Documented By: MADISON Sertraline HCl (Sertraline Hcl 25 Mg Tablet) 100 mg PO QDAY NGUYỄN Stop: 12/22/24 08:59 Topiramate (Topiramate 100 Mg Tablet) 100 mg PO BID NGUYỄN Stop: 12/22/24 02:44 Last Admin: 11/22/24 03:14 Dose: Not Given Documented By: MADIOSN Non-Admin Reason: Other, see note Discontinued Medications Acetaminophen (Acetaminophen 500 Mg Tablet) 500 mg PO X1 ONE Stop: 11/22/24 00:03 Last Admin: 11/22/24 00:31 Dose: 500 mg Documented By: MADISON Folic Acid (Folic Acid Inj 1 Mg/0.2 Ml) 1 mg IVP X1 ONE Stop: 11/22/24 01:29 Last Admin: 11/22/24 02:23 Dose: 1 mg Documented By: MADISON Sodium Chloride (Ns) 1,000 mls @ 999 mls/hr IV .Q1H1M ONE Stop: 11/22/24 00:56 Last Infusion: 11/22/24 01:26 Dose: Infused Documented By: Admin: 11/22/24 00:04 Dose: 999 mls/hr Documented By: MADISON Potassium Chloride (Kcl Ivpb) 10 meq in 100 mls @ 100 mls/hr IV Q1H NGUYỄN Stop: 11/22/24 02:45 Potassium Phosphate 22.5 mmol/ (Sodium Chloride) 507.5 mls @ 82.778 mls/hr IV X1 ONE Stop: 11/22/24 06:54 Last Admin: 11/22/24 02:04 Dose: Not Given Documented By: MADISON Non-Admin Reason: Cancelled by Provider Potassium Chloride (Kcl Ivpb) 10 meq in 100 mls @ 100 mls/hr IV Q1H [facility] Stop: 11/22/24 03:26 Last Admin: 11/22/24 02:55 Dose: 100 mls/hr Documented By: Infusion: 11/22/24 02:54 Dose: Infused Documented By: Admin: 11/22/24 01:50 Dose: 100 mls/hr Documented By: MADISON Levetiracetam (Levetiracetam Inj 100 Mg/Ml Vial 5ml) 1,000 mg IVP X1 ONE Stop: 11/21/24 23:54 Last Admin: 11/22/24 00:03 Dose: 1,000 mg Documented By: MADISON Non-Formulary Medication (Cenobamate [Xcopri]) 300 mg PO [facility] Stop: 12/22/24 02:29 Non-Formulary Medication (Perampanel [Fycompa]) 10 mg PO [facility] Stop: 12/22/24 02:34 Potassium Chloride (Potassium Chloride 20 Meq Tabcr) 40 meq PO X1 ONE Stop: 11/22/24 00:46 Last Admin: 11/22/24 01:25 Dose: 40 meq Documented By: DAVE Thiamine HCl (Thiamine Inj 100 Mg/Ml Vial 2 Ml) 100 mg IVP X1 ONE Stop: 11/22/24 01:29 Last Admin: 11/22/24 01:47 Dose: 100 mg Documented By: MADISON As Above Consultations Consultation(s) initiated? (list below): No Diagnosis Seizure Differential Diagnosis: generalized seizure and epileptic seizure Most likely diagnosis given after review of the tests above:: Breakthrough Seizures Admission Indicated Admission indicated?: indicated Admission Request Was there a request for admission?: Yes Admission Attestation Admission request attestation: Discussed case with Dr Gardner from Hospitalist service regarding admission. Discussed patients ED course, exam findings, labs, and radiology results. Case discussed with hospitalist team and attending physician Dr. Champion, as patient has blood alcohol level positive there is a concern that her alcohol use is triggering seizure episodes. Disposition Plan Disposition Plan: Discharge Discharge Attestation Discharge Attestation: The patient and all family members were given an opportunity to ask questions and understood the discharge instructions. Discharge instructions specifically effects, indications for sooner follow up or return to the emergency department, and the expected course of current diagnosis. Patient condition: Stable Discharge Plan Plan Patient Disposition: HOME (Self Care) Patient condition on transfer: Stable Prescriptions/Referrals Prescriptions/Med Rec: Continued perampanel [Fycompa] 10 mg tablet 10 mg PO HS Xcopri 100 mg tablet 300 mg PO HS lamotrigine 150 mg tablet 150 mg PO Q12H Patient Comments: TAKE 1 TABLET BY MOUTH TWICE DAILY sertraline 100 mg tablet 100 mg PO QDAY topiramate [Topamax] 100 mg tablet 100 mg PO BID Qty: 60 0RF cholecalciferol (vitamin D3) [Vitamin D3] 50 mcg (2,000 unit) capsule 50 mcg PO QDAY Discontinued topiramate 50 mg tablet 50 mg PO Q12H Patient Comments: TAKE 1 TABLET BY MOUTH TWICE DAILY Referrals: No Primary/Family,Physician [Primary Care Provider] - In 1 week Shawn Arroyo MD [Emergency Provider, Internal Medicine] - In 1 week Problem List Clinical Impression: Epilepsy Patient/Caregiver Discharge Instructions Discharge Activity: activity as tolerated Education Materials: ED Seizure, Recurrent (Adult) Additional Instructions: - You were seen in the ER today for breakthrough seizures, please continue to take your medications for seizures: Xcopri 300 mg at bedtime, topiramate 100 mg p.o. twice daily, perampanel 10 mg at bedtime, lamotrigine 150 mg twice a day. Please avoid alcohol as we believe alcohol use is triggering your seizure ep isodes. - Follow-up with [facility] as below we will refer you to neurology to establish care - Return to the emergency department if symptoms worsen - Follow-up with your primary care physician in 1 week - Call [phone] to make an appointment at [facility] Address: [facility], [address], [address], [place], [address] - We made a referral at [facility] for [facility], please follow up at [facility] for further details please, Print Language: Maori Stand Alone Forms: Shelly Award Info., Patient Portal Info Letter
[2024-11-21 23:53] VITALS: BP 126/100; PULSE 58; RESP 16; TEMP 36.6; O2SAT 97
[2024-11-21 23:57] VITALS: PULSE 61
--- NOTE | 2024-11-21 23:57 | XR_ITS ---
Examination: AP chest single view Technique one AP portable semiupright chest single view Date and time: November 22, 2024, 0042 hrs. Indications: Chest pain post seizure today. Findings: No significant cardiac enlargement No aspiration pneumonia. The osseous structures are intact Impression: Negative for aspiration pneumonia
[2024-11-22] MEDS: levETIRAcetam INJ 100 MG/ML VIAL 5ML 1000 MG IVP (00:03)
[2024-11-22] MEDS: SODIUM CHLORIDE 0.9% 1000 ML 1,000 ML 999 ML IV (00:04)
[2024-11-22 00:07] LABS: Base Excess, Venous -5 (-3-3); Lactate (Lactic Acid) 2.7 mMol/L (0.4-2.0); O2 Saturation, Venous 99 % (96-97); PCO2, Venous 24 mmHg (36-56); PO2, Venous 106 mmHg (15-58); pH, Venous 7.46 (7.33-7.66)
[2024-11-22 00:15] LABS: Basophils # (Auto) 0.1 Thou/mm3 (0.0-0.2); Basophils % (Auto) 1 % (0-2.5); Eosinophils # (Auto) 0.1 Thou/mm3 (0.0-0.5); Eosinophils % (Auto) 1 % (0-10); Hematocrit 33.9 % (36.0-46.0); Hemoglobin 11.6 g/dL (12.0-16.0); Immature Granulocytes Auto 0.04 Thou/mm3 (0.00-0.00); Lymphocytes # (Auto) 3.0 Thou/mm3 (1.0-4.8); Lymphocytes % (Auto) 31 % (10-50); Mean Corpuscular HGB Conc 34.2 g/dl (31.0-37.0); Mean Corpuscular Hemoglobin 34.5 pg (25.0-35.0); Mean Corpuscular Volume 101 fL (80-100); Monocytes # (Auto) 0.7 Thou/mm3 (0.0-0.8); Monocytes % (Auto) 7 % (0-12); Neutrophils # (Auto) 5.8 Thou/mm3 (1.8-7.7); Neutrophils % (Auto) 60 % (37-80); Nucleated Red Blood Cell # 0.00 Thou/mm3 (0.00-0.00); Nucleated Red Blood Cell % 0 /100 WBC (0); Platelet Count 208 Thou/mm3 (140-440); RDW Standard Deviation 58.4 fL (36.4-46.3); Red Blood Count 3.36 Miln/mm3 (4.00-5.20); White Blood Count 9.6 Thou/mm3 (3.6-11.0)
[2024-11-22 00:23] LABS: INR 1.0 (0.9-1.3); Partial Thromboplastin Time 26.0 Seconds (22.0-36.0); Prothrombin Time 10.3 Seconds (9.0-12.2)
[2024-11-22] MEDS: ACETAMINOPHEN 500 MG TABLET PO (00:31)
[2024-11-22 00:36] LABS: Alanine Aminotransferase 50 U/L (10-49); Albumin, Serum 4.0 gm/dL (3.5-5.0); Albumin/Globulin Ratio 1.6 (1.2-2.2); Alcohol, Blood Medical 68.6 mg/dL (0-10.0); Alkaline Phosphatase 74 U/L (46-116); Anion Gap 16 (7-16); Aspartate Amino Transferase 82 U/L (0-34); BUN/Creatinine Ratio 13 Ratio (12-20); Bilirubin,Total 0.5 mg/dL (0.3-1.2); Blood Urea Nitrogen 8 mg/dL (9-23); Calcium 9.1 mg/dL (8.3-10.6); Calcium (Corrected) 9.1 mg/dL (8.5-10.1); Carbon Dioxide 16.3 mMol/L (20.0-31.0); Chloride 107 mMol/L (98-107); Creatine Kinase 111 U/L (34-171); Creatinine (Component) 0.6 mg/dL (0.6-1.3); Estimated Creatinine Clearance 134.6 mL/min (>60); Globulin 2.5 gm/dL (2.3-3.5); Glucose 87 mg/dL (74-106); Magnesium 1.7 mg/dL (1.6-2.6); Osmolality,Calculated 274 (275-295); Phosphorous 1.9 mg/dL (2.4-5.1); Potassium 2.9 mMol/L (3.4-5.1); Procalcitonin 0.11 ng/ml (0.0-0.49); Sodium 139 mMol/L (136-145); Total Protein 6.5 gm/dL (5.7-8.2); eGFR > 60 See Note
[2024-11-22 00:40] LABS: Collection Type, Urine Clean Catch
[2024-11-22 00:48] LABS: Bilirubin,Urine Negative (Negative); Blood,Urine Negative (Negative); Clarity,Urine Clear (Clear/Hazy); Color,Urine Yellow (Lt Yel-Yel); Glucose, Urine Negative (Negative); Ketones,Urine 2+ (Negative); Leukocyte Esterase,Urine Negative (Negative); Nitrite,Urine Negative (Negative); PH,Urine 6.0 (5.0-7.0); Protein,Urine Negative (Neg - Trace); RBC,Urine < 1 /hpf (0-3); Specific Gravity,Urine 1.029 (1.001-1.035); Squamous Epithelial Cell,Urine 2 /hpf (0-5); Urobilinogen,Urine Negative mg/dL (0.0-1.0); WBC,Urine 1 /hpf (0-5)
[2024-11-22 00:53] LABS: Amphetamine/Methamp Scrn,U Negative (Negative); Barbiturate Screen,Urine Negative (Negative); Benzodiazepines Screen,Urine Negative (Negative); Benzoylecgonine Screen, Ur Negative (Negative); Fentanyl Screen,Urine Negative (Negative); Opiate Screen,Urine Negative (Negative); THC Screen,Urine Negative (Negative)
[2024-11-22] MEDS: THIAMINE INJ 100 MG/ML VIAL 2 ML IVP (01:47)
[2024-11-22] MEDS: POTASSIUM CHL 10 mEq IVPB 10 MEQ/100 ML BAG 100 MEQ IV ×2 (01:50→02:55)
--- NOTE | 2024-11-22 02:00 | PC.NURSE ---
PT BIBA FROM HOME FOR A WITNESS FOCAL SEIZURE BY MOM. PT DENIES HEAD INJURY, BUT DOES HAVE AN OLD BRUISE ON THE RIGHT FOREHEAD
[2024-11-22] MEDS: NAPH,KPH MBDB 1 PACKET (1.5 GM) PO (02:23)
[2024-11-22] MEDS: FOLIC ACID INJ 1 MG/0.2 ML IVP (02:23)
[2024-11-22] MEDS: SODIUM CHLORIDE 0.9% 1000 ML 1,000 ML 100 ML IV (02:35)
[2024-11-22 03:06] LABS: Reflex Lactate? Y
--- NOTE | 2024-11-22 03:21 | PC.NURSE ---
PT BROUGHT HOME MEDS TO ER. LAMOTRIGINE 150MG WAS OUT OF STOCK GLOBAL. CENOBAMATE 300MG AND PERAMPANEL 10MG ARE 2 MEDS THAT NEED TO BE FORMUALTED BY PHARMACY. TOPIRAMATE 100MG WAS OUT OF STOCK IN THE ED. PROVIDER WAS NOTIFIED AND REQUESTED TO GIVE PT HOME MEDS. HOME MEDS WERE GIVEN WITH THE CORRESPONDING MAR ORDERS. THE FOLLOWING HOME MEDS WERE GIVEN PER PROVIDER CENOBAMATE 300MG PERMAPANEL 10MG TOPIRAMATE 100MG LAMOTRIGINE 150MG MEDS WERE GIVEN PO AT 0313 PER VERBAL ORDERS FROM PROVIDER
[2024-11-22 03:50] LABS: Lactic Acid, 3 HR 1.1 mMol/L (0.4-2.0)
--- NOTE | 2024-11-22 04:12 | PC.NURSE ---
[facility] initiated for out pt referral, Ana from Transfer team stated she will reach her ortho team in the am. Out patient clinic not available over the weekend
[2024-11-22 05:01] VITALS: BP 93/60; PULSE 74; RESP 22; O2SAT 98
--- NOTE | 2024-11-22 05:57 | PC.NURSE ---
LUIS A FROM [facility] CALLED BACK TO GIVE OUT PT REFERRAL INFO. PT CAN SEE ORTHOPEDIST SUDHIR TORRES, OR MATEO AT [facility] [address] [place] [id number] . FOR FRACTURE TO LEFT WRIST.
--- NOTE | 2024-11-22 08:16 | PC.SS ---
Addendum entered by Courtney Merritt 11/22/24 08:45: SW provided taxi voucher and scheduled ride at 1130 AM. Original Note: Weft Straightener notified Sary that patient was requesting assistance with transportation. SHAUN met with patient [id number] to discuss transportation. Patient provided home address: [address], [address], [place] [address]. SHAUN completed referral for [employer] transportation, pending a route sales delivery driver.
--- NOTE | 2024-11-22 09:00 | PC.NURSE ---
OYSTER PICKER HAD ARRANGED TAXI FOR PT . [employer]BER [employer]IPLE INDUSTRIAL HYGIENIST SHOWED UP TO TAKE PT HOME. PT REFUSED TO GO WITH UBER PRINCIPLE INDUSTRIAL HYGIENIST STATING I WON'T GO WITHHIM I NEED SOMEONE MORE PROFESSIONAL. I'M JUST GOING TO LEAVE. PT THEN WALKED OUT OF THE E.D. TALKING ON CELL PHONE. OYSTER PICKER INFORMED AND WILL CANCEL TAXI (COMING AT 1130).
== END 2024-11-22 05:25 | disposition home or self-care (01) ==
PROVIDERS: Emergency Provider Emergency Medicine
DX: G40.909 Epilepsy, unspecified, not intractable, without status epilepticus (principal); E83.39 Other disorders of phosphorus metabolism; E87.6 Hypokalemia; F10.10 Alcohol abuse, uncomplicated; R74.01 Elevation of levels of liver transaminase levels; S62.12 Fracture of lunate [semilunar]; I10 Essential (primary) hypertension; Y90.3 Blood alcohol level of 60-79 mg/100 ml; F17.290 Nicotine dependence, other tobacco product, uncomplicated; Z79.899 Other long term (current) drug therapy; Z91.040 Latex allergy status; Z88.5 Allergy status to narcotic agent; Z91.048 Other nonmedicinal substance allergy status; X58.XXXD Exposure to other specified factors, subsequent encounter
CPT/HCPCS: 51701; 36415; 71045; 80053; 80307; 80320; 81001; 82550; 82803; 83605; 83735; 84100; 84145; 85025; 85610; 85730; 93005; 96361; 96365; 96375; 99285; J1953; J3411; J3480; J3490; J7030; A9270; G0480

== ENCOUNTER 2024-12-11 22:22 | Emergency (ER) | payer MEDICAID, SELFPAY ==
[2024-12-11 22:28] VITALS: BP 124/55; PULSE 80; PULSE 84; RESP 14; RESP 19; TEMP 37.1; O2SAT 96; BMI 26.6
[2024-12-11 22:29] VITALS: BMI 36.0
[2024-12-11 22:56] VITALS: BP 128/85; PULSE 85; RESP 14; TEMP 37; O2SAT 99
--- NOTE | 2024-12-11 23:31 | XR_ITS ---
Examination: CT brain head without contrast. 2-D sagittal coronal reconstructions Date and time of exam: December 11, 2024, 1150 hours, comparison August 10, 2024 Multiple seizures beginning yesterday COMPARISON: 11/07/2024 CTDI: vol (mGy): 53.1 DLP: (mGycm): 1330 Technique: Multiple CT axial sections of the brain have been obtained, 5 mm slice thickness. Contrast has not been administered. 2-D sagittal, coronal reconstructions have been obtained Low dose protocols were performed. One or more of the following dose reduction techniques were used; automated exposure control, adjustment of the mA and/or KV according to patient size, use of iterative reconstruction technique. Findings: No significant ventricular enlargement. Neural transmitter leads generate extensive artifacts Large area of encephalomalacia in the left temporal lobe Intra-axial or extra-axial hemorrhage density is not seen. No mass effect or midline shift Basal cisterns are not remarkable. Fourth ventricle is midline. Cranial vault intact. Impression: No interval acute hemorrhage, mass effect or midline shift
[2024-12-11] MEDS: SODIUM CHLORIDE 0.9% 1000 ML 1,000 ML 999 ML IV (23:40)
[2024-12-11 23:48] LABS: Basophils # (Auto) 0.1 Thou/mm3 (0.0-0.2); Basophils % (Auto) 1 % (0-2.5); Eosinophils # (Auto) 0.0 Thou/mm3 (0.0-0.5); Eosinophils % (Auto) 1 % (0-10); Hematocrit 39.9 % (36.0-46.0); Hemoglobin 13.7 g/dL (12.0-16.0); Immature Granulocytes Auto 0.02 Thou/mm3 (0.00-0.00); Lymphocytes # (Auto) 2.9 Thou/mm3 (1.0-4.8); Lymphocytes % (Auto) 37 % (10-50); Mean Corpuscular HGB Conc 34.3 g/dl (31.0-37.0); Mean Corpuscular Hemoglobin 34.9 pg (25.0-35.0); Mean Corpuscular Volume 102 fL (80-100); Monocytes # (Auto) 0.5 Thou/mm3 (0.0-0.8); Monocytes % (Auto) 7 % (0-12); Neutrophils # (Auto) 4.3 Thou/mm3 (1.8-7.7); Neutrophils % (Auto) 55 % (37-80); Nucleated Red Blood Cell # 0.00 Thou/mm3 (0.00-0.00); Nucleated Red Blood Cell % 0 /100 WBC (0); Platelet Count 291 Thou/mm3 (140-440); RDW Standard Deviation 56.4 fL (36.4-46.3); Red Blood Count 3.93 Miln/mm3 (4.00-5.20); White Blood Count 7.9 Thou/mm3 (3.6-11.0)
[2024-12-12 00:06] LABS: Alanine Aminotransferase 47 U/L (10-49); Albumin, Serum 4.3 gm/dL (3.5-5.0); Albumin/Globulin Ratio 1.4 (1.2-2.2); Alkaline Phosphatase 86 U/L (46-116); Anion Gap 16 (7-16); Aspartate Amino Transferase 95 U/L (0-34); BUN/Creatinine Ratio 8 Ratio (12-20); Bilirubin,Total < 0.2 mg/dL (0.3-1.2); Blood Urea Nitrogen < 5 mg/dL (9-23); Calcium 9.0 mg/dL (8.3-10.6); Calcium (Corrected) 9.0 mg/dL (8.5-10.1); Carbon Dioxide 17.2 mMol/L (20.0-31.0); Chloride 110 mMol/L (98-107); Creatinine (Component) 0.6 mg/dL (0.6-1.3); Estimated Creatinine Clearance 138.1 mL/min (>60); Globulin 3.1 gm/dL (2.3-3.5); Glucose 84 mg/dL (74-106); Osmolality,Calculated 281 (275-295); Potassium 3.7 mMol/L (3.4-5.1); Sodium 143 mMol/L (136-145); Total Protein 7.4 gm/dL (5.7-8.2); eGFR > 60 See Note
[2024-12-12 00:28] VITALS: BP 130/85; PULSE 82; RESP 16; TEMP 37; O2SAT 99
--- NOTE | 2024-12-12 00:56 | EDNOTE_ITS ---
ED Seizures RME/HPI General Chief Complaint: Weakness Stated Complaint: WEAKNESS Time Seen by Provider: 12/11/24 23:31 Arrival date/time: 12/11/24 22:22 RME / HPI RME / HPI Narrative: DR. BERMAN MAIN ED EVALUATION: Patient with long-standing Hx of seizure disorder with RNS device s/p left temporal lobotomy on anti-convulsants readily acknowledges drinking with seizure activity characterized as grand mal x2. Patient maintained on Topomax, Lamotrigine, and Fycompa. Denies recent fever, chills, or antecedent illness, although did endure head blunt trauma during seizure for which she was not evaluated. No headaches, visual or lateralizing motor deficits. PMH: Seizure disorder, HTN, Epilepsy PSH: Craniotomy Allergies: Morphine Social: Sporadic alcohol consumption, No illicit drug abuse Related Data Home Medications ?Medication ?Instructions ?Recorded ?Confirmed lamotrigine 150 mg tablet 150 mg PO Q12H 11/17/2412/02 perampanel 10 mg tablet (Fycompa) 10 mg PO HS 11/17/24 12/11/24 sertraline 100 mg tablet 100 mg PO QDAY 11/17/2412/02 cholecalciferol (vitamin D3) 50 50 mcg PO QDAY 5 12/11/24 mcg (2,000 unit) capsule (Vitamin D3) Previous Rx's ?Medication ?Instructions ?Recorded topiramate 100 mg tablet (Topamax) 100 mg PO BID #60 t abs 11/17/24 Allergies Allergy/AdvReac Type Severity Reaction Status Date / Time adhesive tape Allergy Severe Hives Verified 11/21/24 13:12 latex Allergy Severe Hives Verified 11/21/24 13:12 morphine Allergy Severe Swelling Verified 11/21/24 13:12 of Lip/Tongue/Throat Review of Systems Review of Systems Systems Reviewed: All systems reviewed, normal except as documented Past Medical History Past Medical History NEUROLOGIC: Positive Seizures and Epilepsy CARDIAC: Positive Hypertension Surgical History SURGICAL: Positive Neurologic Surgery and Tubal Ligation (more than 5 years ago) ED Exam Narrative Physical exam: GEN. APPEARANCE: The patient is alert awake oriented X-3 in no distress, lying down comfortably, does not look ill/toxic. Patient has good eye contact. Patient is cooperative. Mildly inebriated with alcohol odor in breath. VITALS: All vitals were reviewed and the pulse ox is 99% on room air which is normal according to my interpretation. HEENT: Normocephalic, atraumatic. Pupils are equal and reactive. Positive nystagmus in horizontal plain which is fatigable. Oral mucosa is moist. Patent Nares NECK: Supple, nontender, no thyromegaly, no meningismus, no JVD, no step offs CHEST: Symmetrical, atraumatic, and with equal expansion , Nontender on palpation no deformity and no crepitus. CARDIOVASCULAR: Heart regular rhythm no murmur or gallop rub or extra beats. LUNGS: Clear to auscultation bilaterally with symmetrical chest rise. No laboring tachypnea or wheezing. No intercostal subcostal retraction. No rales and no rhonchi. ABDOMEN: Soft, flat, nontender to palpation, no guarding or rebound tenderness. There are no abnormal masses palpated. Active and normal bowel sounds. EXTREMITIES: Nontender. No edema. No cyanosis. Patient is able to move all 4 extremities well, with full ROM and good CSM. SKIN: Warm and dry, no jaundice or rashes noted. MUSCULOSKELETAL: No lubar or midline bony tenderness. There is no CVA tenderness. No paraspinal muscle spasm or tenderness. NEURO: Patient is REID x 4, Cranial nerves II through XII grossly intact. There is no focal neurologic deficits noted. GCS is 15, PNS and PRO[employer]ER appear grossly intact. PSYCHIATRIC: Patient is in normal mood and affect, cooperative, no SI or HI or hallucinations. Course Quality Measures none Orders Category Date Time Status Seizure precautions NOW Care 12/11/24 23:[address] head/brain wo con Stat Exams 12/11/24 23:31 Completed Alcohol, Blood Medical Stat Lab 12/12/24 00:56 Completed CBC [CBC] Stat Lab 12/11/24 23:35 Completed CMP [Comprehensive Metabolic Panel] Stat Lab 12/11/24 23:35 Completed Urinalysis, C/S if Indicated Stat Lab 12/11/24 23:31 Ordered Folic Acid Inj Med 12/12/24 00:56 Discontinued 1 mg IVP X1 ONE Sodium Chloride 0.9% 1000 ml [Ns] 1,000 ml Med 12/11/24 23:31 Discontinued IV 999 mls/hr Thiamine Inj [Vitamin B-1 Inj] 100 mg Med 12/12/24 00:56 Discontinued Sodium Chloride 0.9% [Ns] 100 ml IV X1 Vital Signs Vital signs: Vital Signs Temperature 98.7 F 12/11/24 22:28 Pulse Rate 84 12/11/24 22:28 Respiratory Rate 19 12/11/24 22:28 Blood Pressure 124/55 L 12/11/24 22:28 Pulse Oximetry (%) 96 12/11/24 22:28 Oxygen Delivery Method Room Air 12/11/24 22:28 Seizure MDM Narrative MDM Narrative:: Scribe Attestation: I, Geraldine Leahy, am scribing for and in the presence of Dr. Berman. Provider Notation: Although this document has been carefully reviewed, there may still be some phonetic and other typographical errors. These errors are purely grammatical due to imperfections in the software program and should not be construed in any way to compromise the substance of the patient's medical care during this visit. Patient with long-standing Hx of seizure disorder with RNS device s/p left temporal lobotomy on anti-convulsants readily acknowledges drinking with seizure activity characterized as grand mal x2. Patient maintained on Topomax, Lamotrigine, and Fycompa. Please see PE findings. Laboratory markers demonstrates a normal WBC, no anemia or thrombocytopenia. Serum chemistries demonstrate low CO2 of 17, and elevated Chloride of 110. Normal renal function. Ethanol level of 265.1. CT scan obtained of the head/brain without evidence of hemorrhage, appears to be a large encephalomalacia of the left temporal lobe. Additionally, there's a neurotransmitter present. Patient place on body and fender mechanic and placed on seizure protocol and observed for extended period of time. Patient treated with Thiamine and Folic acid, and was hydrated with normal saline to correct volume deficit. Patient remained seizure-free throughout ED course. Patient was counseled regarding alcohol consumption. Patient will be discharged home on her own accord. Final diagnoses include recurrent seizures and alcohol abuse disorder. Disposition to home. Patient data External records reviewed:: [facility] previous records (Reviewed prior ED records from 11/21/24. Patient was seen for Epilepsy.) and EMS form Clinical information provided by:: patient and EMS Social determinants that could affect healthcare access:: alcohol use Patient has the following chronic illnesses:: Seizure disorder, HTN, Epilepsy How is presenting disease/condition affected by chronic disease/condition?: exacerbated by Evaluation data The following diagnostics were reviewed and interpreted by me:: lab results and radiology exam(s) Lab and/or radiology exams considered but not ordered:: None Interpretation Summary: RADIOLOGY Head/Brain CT: Findings: No significant ventricular enlargement. Neural transmitter leads generate extensive artifacts Large area of encephalomalacia in the left temporal lobe Intra-axial or extra-axial hemorrhage density is not seen. No mass effect or midline shift Basal cisterns are not remarkable. Fourth ventricle is midline. Cranial vault intact. Impression: No interval acute hemorrhage, mass effect or midline shift Medications / Prescriptions Medications or Prescriptions considered but not ordered:: None Medication administrations:: Medication Administration History Discontinued Medications Folic Acid (Folic Acid Inj 1 Mg/0.2 Ml) 1 mg IVP X1 ONE Stop: 12/12/24 00:57 Last Admin: 12/12/24 01:06 Dose: 1 mg Documented By: ARCELIA Sodium Chloride (Ns) 1,000 mls @ 999 mls/hr IV .Q1H1M ONE Stop: 12/12/24 00:31 Last Infusion: 12/12/24 00:42 Dose: Infused Documented By: Admin: 12/11/24 23:40 Dose: 999 mls/hr Documented By: DT Thiamine HCl 100 mg/ Sodium (Chloride) 101 mls @ 202 mls/hr IV X1 ONE Stop: 12/12/24 01:25 Last Infusion: 12/12/24 01:38 Dose: Infused Documented By: Admin: 12/12/24 01:08 Dose: 202 mls/hr Documented By: DT See above if any Consultations Consultation(s) initiated? (list below): No Diagnosis Seizure Differential Diagnosis: focal seizure, generalized seizure, epileptic seizure and status epilepticus Most likely diagnosis given after review of the tests above:: Recurrent seizures, Alcohol abuse disorder Admission Indicated Admission indicated?: not indicated Explain why admission is indicated or not indicated:: Patient does not meet admission criteria Admission Request Was there a request for admission?: No Disposition Plan Disposition Plan: Discharge Discharge Attestation Discharge Attestation: The patient and all family members were given an opportunity to ask questions and understood the discharge instructions. Discharge instructions specifically effects, indications for sooner follow up or return to the emergency department, and the expected course of current diagnosis. Patient condition: Stable Discharge Plan Plan Patient Disposition: HOME (Self Care) Prescriptions/Referrals Prescriptions/Med Rec: No Action perampanel [Fycompa] 10 mg tablet 10 mg PO HS lamotrigine 150 mg tablet 150 mg PO Q12H Patient Comments: TAKE 1 TABLET BY MOUTH TWICE DAILY sertraline 100 mg tablet 100 mg PO QDAY topiramate [Topamax] 100 mg tablet 100 mg PO BID Qty: 60 0RF cholecalciferol (vitamin D3) [Vitamin D3] 50 mcg (2,000 unit) capsule 50 mcg PO QDAY Problem List Clinical Impression: Recurrent seizures, Alcohol abuse Patient/Caregiver Discharge Instructions Print Language: Swiss Stand Alone Forms: Shelly Award Info., Patient Portal Info Letter
[2024-12-12] MEDS: FOLIC ACID INJ 1 MG/0.2 ML IVP (01:06)
[2024-12-12] MEDS: THIAMINE INJ 100 MG in SODIUM CHLORIDE 0.9% 100 ML 202 MG IV (01:08)
[2024-12-12 01:13] LABS: Alcohol, Blood Medical 265.1 mg/dL (0-10.0)
[2024-12-12 02:28] VITALS: BP 135/95; PULSE 85; RESP 16; TEMP 37.1; O2SAT 99
[2024-12-12 04:28] VITALS: BP 127/86; PULSE 87; RESP 16; TEMP 37; O2SAT 99
[2024-12-12 06:27] VITALS: BP 121/82; PULSE 90; RESP 16; TEMP 36.7; O2SAT 97
[2024-12-12 06:28] VITALS: BP 121/92; PULSE 85; RESP 14; O2SAT 99
[2024-12-12 08:34] VITALS: BP 136/77; PULSE 68; RESP 16; TEMP 36.6; O2SAT 99
== END 2024-12-12 08:35 | disposition home or self-care (01) ==
LOC: SERX 12-12 02:58
PROVIDERS: Emergency Provider Emergency Medicine
DX: G40.409 Other generalized epilepsy and epileptic syndromes, not intractable, without status epilepticus (principal); F10.10 Alcohol abuse, uncomplicated; I10 Essential (primary) hypertension
CPT/HCPCS: 36415; 70450; 80053; 80320; 81001; 85025; 99284; J3411; J3490; J7030; J7050; G0480

== ENCOUNTER 2025-01-17 14:00 | Inpatient (IN) | payer MEDICAID, SELFPAY ==
[2025-01-17 14:01] VITALS: BMI 34.3
[2025-01-17 14:46] VITALS: BP 158/107; PULSE 89; RESP 20; TEMP 37.1; O2SAT 98
--- NOTE | 2025-01-17 15:13 | XR_ITS ---
Examination: CT brain head without contrast. 2-D sagittal coronal reconstructions Date and time of exam: January 17, 2025, 1534 hours INDICATIONS: Seizure today followed by head pain headache COMPARISON: December 11, 2024 CTDI: vol (mGy): 53.6 DLP: (mGycm): 1091 Technique: Multiple CT axial sections of the brain have been obtained, 5 mm slice thickness. Contrast has not been administered. 2-D sagittal, coronal reconstructions have been obtained Low dose protocols were performed. One or more of the following dose reduction techniques were used; automated exposure control, adjustment of the mA and/or KV according to patient size, use of iterative reconstruction technique. Findings: No significant ventricular enlargement. Again noted large area encephalomalacia in the left temporal lobe Again noted is severe artifacts secondary to neural transmitter leads The ventricles are not enlarged No mass effect upon the ventricular system No gross hemorrhage IMPRESSION: Severely limited study as above No gross hemorrhage No mass effect
--- NOTE | 2025-01-17 15:13 | EKG_ITS ---
[facility] Test Date: 2025-01-17 Pat Name: KATHY CLARK Department: Room: - Gender: Female Senior Quality Assurance Analyst: : 1985 Requested By: Greg Copeland Order Number: [id number] Reading MD: Greg Copeland Measurements Intervals Daniel Rate: 84 P: 51 OR: 131 QRS: -20 QRSD: 94 T: 12 QT: 381 QTc: 451 Interpretive Statements SINUS RHYTHM MODERATE T-WAVE ABNORMALITY, CONSIDER ANTERIOR ISCHEMIA [-0.1+ mV T-WAVE IN V3/V4] Compared to ECG 11/22/2024 02:20:10 T-wave abnormality now present Possible ischemia now present Sinus arrhythmia no longer present /store/S0/[id number]/[id number].pdf
--- NOTE | 2025-01-17 15:14 | PD.EDRME ---
Rapid Medical Screening Exam RME Arrival date/time: 01/17/25 14:00 Chief Complaint: Seizure Vital signs: Vital Signs Temperature 98.8 F 01/17/25 14:46 Pulse Rate 89 01/17/25 14:46 Respiratory Rate 20 01/17/25 14:46 Blood Pressure 158/107 H 01/17/25 14:46 Pulse Oximetry (%) 98 01/17/25 14:46 Oxygen Delivery Method Room Air 01/17/25 14:46 RME Narrative: 39-year-old female with a past medical history of seizures with lobotomy on topiramate, perampanel, lamotrigine complaining of breakthrough seizure this morning at her house for an unknown period of time and was brought here by her neighbor subsequently had a another seizure in front of the hospital and was brought in with a wheelchair and a postictal state. I briefly performed a screening evaluation to initiate work-up and expedite care. Patient did have a drink 3 days ago of 2 beers but she does not drink daily she states. Complete history, physical exam, and plan of care is deferred to the provider in the main ED. Exam: Head: Normocephalic, atraumatic. Respiratory: Normal effort. No respiratory distress or accessory muscle use. Neuro: Speech normal. Skin: Warm, dry, normal color. Psych: Pleasant. Normal affect. Cooperative. Clinical Impression: Seizure rule out correctable abnormalities
[2025-01-17 15:44] LABS: Basophils # (Auto) 0.0 Thou/mm3 (0.0-0.2); Basophils % (Auto) 0 % (0-2.5); Eosinophils # (Auto) 0.0 Thou/mm3 (0.0-0.5); Eosinophils % (Auto) 0 % (0-10); Hematocrit 37.4 % (36.0-46.0); Hemoglobin 13.1 g/dL (12.0-16.0); Immature Granulocytes Auto 0.02 Thou/mm3 (0.00-0.00); Lymphocytes # (Auto) 1.5 Thou/mm3 (1.0-4.8); Lymphocytes % (Auto) 20 % (10-50); Mean Corpuscular HGB Conc 35.0 g/dl (31.0-37.0); Mean Corpuscular Hemoglobin 34.2 pg (25.0-35.0); Mean Corpuscular Volume 98 fL (80-100); Monocytes # (Auto) 0.5 Thou/mm3 (0.0-0.8); Monocytes % (Auto) 7 % (0-12); Neutrophils # (Auto) 5.4 Thou/mm3 (1.8-7.7); Neutrophils % (Auto) 73 % (37-80); Nucleated Red Blood Cell # 0.00 Thou/mm3 (0.00-0.00); Nucleated Red Blood Cell % 0 /100 WBC (0); Platelet Count 205 Thou/mm3 (140-440); RDW Standard Deviation 48.6 fL (36.4-46.3); Red Blood Count 3.83 Miln/mm3 (4.00-5.20); White Blood Count 7.4 Thou/mm3 (3.6-11.0)
[2025-01-17 16:18] LABS: Ammonia 38 uMol/L (11-32)
[2025-01-17 16:21] LABS: Alanine Aminotransferase 67 U/L (10-49); Albumin, Serum 4.4 gm/dL (3.5-5.0); Albumin/Globulin Ratio 1.9 (1.2-2.2); Alcohol, Blood Medical < 3.0 mg/dL (0-10.0); Alkaline Phosphatase 75 U/L (46-116); Anion Gap 13 (7-16); Aspartate Amino Transferase 93 U/L (0-34); BUN/Creatinine Ratio 10 Ratio (12-20); Bilirubin,Total 0.8 mg/dL (0.3-1.2); Blood Urea Nitrogen 6 mg/dL (9-23); Calcium 9.1 mg/dL (8.3-10.6); Calcium (Corrected) 9.1 mg/dL (8.5-10.1); Carbon Dioxide 20.8 mMol/L (20.0-31.0); Chloride 106 mMol/L (98-107); Creatinine (Component) 0.6 mg/dL (0.6-1.3); Estimated Creatinine Clearance 134.6 mL/min (>60); Globulin 2.3 gm/dL (2.3-3.5); Glucose 114 mg/dL (74-106); Lipase 49 U/L (12-53); Magnesium 1.4 mg/dL (1.6-2.6); Osmolality,Calculated 278 (275-295); Potassium 3.3 mMol/L (3.4-5.1); Sodium 140 mMol/L (136-145); Total Protein 6.7 gm/dL (5.7-8.2); Troponin I < 0.002 ng/mL (0.0-0.045); eGFR > 60 See Note
[2025-01-17 16:28] LABS: INR 1.0 (0.9-1.3); Partial Thromboplastin Time 26.3 Seconds (22.0-36.0); Prothrombin Time 10.9 Seconds (9.0-12.2)
[2025-01-17 17:06] VITALS: BP 156/92; PULSE 77; RESP 18; TEMP 37.9; O2SAT 95
--- NOTE | 2025-01-17 17:11 | PC.NURSE ---
Patient called out from E4 I'm going to have a seizure upon entry of room patient began seizure activity. Seizure at 1658 duration 1 minute. LAISHA Cordoba notified CN and RN for assistance with emergency medication administration.
--- NOTE | 2025-01-17 17:12 | PD.EDADDENDU ---
Emergency Room Addendum Addendum Narrative: Patient had a tonic-clonic
[2025-01-17] MEDS: LORazepam 2 MG/ML VIAL IM (17:14)
[2025-01-17 17:20] VITALS: PULSE 91
--- NOTE | 2025-01-17 17:30 | PD.EDSEIZ ---
ED Seizures RME/HPI General Chief Complaint: Seizure Stated Complaint: SEIZURES TODAY, UPSET ABD, NOT EATING WELL Time Seen by Provider: 01/17/25 17:24 Arrival date/time: 01/17/25 14:00 RME / HPI RME / HPI Narrative: 39-year-old female with a past medical history of seizures with lobotomy on topiramate, perampanel, lamotrigine complaining of breakthrough seizure this morning at her house for an unknown period of time and was brought here by her neighbor subsequently had a another seizure in front of the hospital and was brought in with a wheelchair and a postictal state. I briefly performed a screening evaluation to initiate work-up and expedite care. Patient's neurologist is located in [facility] and she has not seen him in a year. Patient did have a drink 3 days ago of 2 beers but she does not drink daily she states. Complete history, physical exam, and plan of care is deferred to the provider in the main ED. Exam: Head: Normocephalic, atraumatic. Respiratory: Normal effort. No respiratory distress or accessory muscle use. Neuro: Speech normal. Skin: Warm, dry, normal color. Psych: Pleasant. Normal affect. Cooperative. Impression: Breakthrough seizures Related Data Home Medications ?Medication ?Instructions ?Recorded ?Confirmed lamotrigine 150 mg tablet 200 mg PO BID 11/17/24 01/18/25 sertraline 100 mg tablet 100 mg PO QDAY 11/17/24 01/17/25 cenobamate 100 mg tablet (Xcopri) 300 mg PO HS 01/17/25 01/18/25 cholecalciferol (vitamin D3) 50 50 mcg PO DAILY 01/18/25 01/18/25 mcg (2,000 unit) capsule lamotrigine 200 mg tablet 200 mg PO Q12H 01/18/25 01/18/25 Previous Rx's ?Medication ?Instructions ?Recorded topiramate 100 mg tablet (Topamax) 100 mg PO BID #60 tabs 11/17/24 Allergies Allergy/AdvReac Type Severity Reaction Status Date / Time adhesive tape Allergy Severe Hives Verified 01/17/25 17:29 latex Allergy Severe Hives Verified 01/17/25 17:29 morphine Allergy Severe Swelling Verified 01/17/25 17:29 of Lip/Tongue/Throat ED Exam Narrative Physical exam: Constitutional: Patient alert and oriented. Well appearing. No acute distress. Not toxic appearing. Head: Normocephalic, atraumatic. Eyes: Periorbital regions bilaterally normal to inspection. Conjunctiva clear bilaterally. Sclera anicteric bilaterally. Pupils equal, round, reactive to light bilaterally. Extraocular movements intact bilaterally. Mouth/Throat: Mucous membranes moist. No stridor or muffled voice. No trismus. Handling secretions without difficulty. Airway widely patent. Neck: Supple. Trachea midline. No JVD. No nuchal rigidity. Normal range of motion. Respiratory: Normal effort. No accessory muscle use or respiratory distress. Lungs clear to auscultation bilaterally without rhonchi, wheezes, or crackles. Cardiovascular: RRR. Normal S1/S2. No murmurs or rubs. Radial pulses intact bilaterally. Abdomen: Soft. Non-distended. Non-tender throughout. No pulsatile mass. No guarding or rebound. Negative Ardon?s sign. Negative McBurney?s point tenderness. Negative Rovsing?s. Back: No midline tenderness or step-offs. No CVA tenderness to palpation bilaterally. Upper Extremities: No gross deformities. Lower Extremities: No gross deformities. Neuro: Speech normal. No gross motor or sensory deficits to upper or lower extremities bilaterally. GCS 15. CN II?XII grossly intact. Skin: Warm, dry, normal color. Psych: Normal affect. Cooperative. Normal insight. Course Quality Measures none Orders Category Date Time Status EKG (ED ONLY) *Do not use* NOW Care 01/17/25 15:13 Completed Insert IV NOW Care 01/17/25 15:12 Active MRI Screening NOW Care 01/17/25 17:31 Active Seizure precautions QSHIFT Care 01/17/25 15:[address] head/brain wo con Stat Exams 01/17/25 15:13 Completed EKG (ED Only) Stat Exams 01/17/25 15:13 Draft MR head/brain wo/w con Stat Exams 01/18/25 Ordered Alcohol, Blood Medical Stat Lab 01/17/25 15:28 Completed Ammonia Stat Lab 01/17/25 15:28 Completed CBC Stat Lab 01/17/25 15:28 Completed CK [Creatine Kinase] Stat Lab 01/17/25 17:20 Completed CMP [Comprehensive Metabolic Panel] Stat Lab 01/17/25 15:28 Completed Drug Screen,Urine Stat Lab 01/17/25 18:42 Completed INR [Prothrombin Time with INR] Stat Lab 01/17/25 15:28 Completed Lactate (Lactic Acid) Routine Lab 01/17/25 17:20 Completed Lamotrigine* Stat Lab 01/17/25 15:28 Received Lipase Stat Lab 01/17/25 15:28 Completed Magnesium Stat Lab 01/17/25 15:28 Completed Partial Thromboplastin Time Stat Lab 01/17/25 15:28 Completed Topiramate* Stat Lab 01/17/25 15:28 Received Troponin I Stat Lab 01/17/25 15:28 Completed UA, C/S IF [Urinalysis, C/S if Indicated] Stat Lab 01/17/25 18:42 Completed LORazepam [Ativan Inj] Med 01/17/25 17:03 Discontinued 2 mg IM X1 ONE Lactulose Syrup [Enulose Syrup] Med 01/17/25 17:16 Discontinued 20 gm PO X1 ONE Magnesium Oxide [Mag-Ox 400] Med 01/17/25 17:15 Discontinued 400 mg PO X1 ONE Topiramate [Topamax] Med 01/17/25 21:00 Active 100 mg PO BID lamoTRIgine [LaMICtal] Med 01/17/25 21:00 Discontinued 150 mg PO BID levETIRAcetam INJ [Keppra Inj] Med 01/17/25 17:24 Discontinued 1,000 mg IVP X1 ONE EEG Awake and Drowsy Routine RT 01/17/25 17:33 Taken Vital Signs Vital signs: Vital Signs Temperature 98.8 F 01/17/25 14:46 Pulse Rate 89 01/17/25 14:46 Respiratory Rate 20 01/17/25 14:46 Blood Pressure 158/107 H 01/17/25 14:46 Pulse Oximetry (%) 98 01/17/25 14:46 Oxygen Delivery Method Room Air 01/17/25 14:46 PROCEDURES: EKG Interpretation #1: Date of EK01/17/25 Time of EK:42 Rate: 84 Interpretation: Interpreted by me Additional EKG comment: Nonspecific ST abnormalities, no ST elevation Seizure MDM Narrative MDM Narrative:: 39-year-old female with a past medical history of epilepsy complaining of multiple episodes of breakthrough seizures this year however today she had 2 prior to arrival and 1 here in the ER which lasted from 30 seconds to a minute at 16:[address] Champion and he agreed with case and plan. Patient was exhibiting tonic-clonic activity and Ativan was given with resolution of seizure activity and patient is now in a postictal state. Patient data External records reviewed:: [facility] previous records Clinical information provided by:: patient Social determinants that could affect healthcare access:: alcohol use Patient has the following chronic illnesses:: Epilepsy How is presenting disease/condition affected by chronic disease/condition?: caused by Evaluation data The following diagnostics were reviewed and interpreted by me:: lab results, radiology exam(s) and EKG tracing(s) Lab and/or radiology exams considered but not ordered:: Additional Labs and radiology considered, but not ordered as they were not clinically indicated at this time. Interpretation Summary: Potassium minimally low 3.3, glucose minimally elevated 114, magnesium minimally low 1.4, AST minimally elevated at 93, ALT minimally elevated 67, ammonia minimally elevated 38 remainder of lab work without severe metabolic or electrolyte abnormality CT scan notable for encephalomalacia of the left lobe and neurotransmitter leads however no acute hemorrhage or mass effect or intracranial abnormality Medications / Prescriptions Medications or Prescriptions considered but not ordered:: I considered prescription management (both outpatient prescriptions AND drug treatment in the ER) and decided that this was necessary and was prescribed as charted. Medication administrations:: Medication Administration History Acetaminophen (Acetaminophen 325 Mg Tablet) 650 mg PO Q6H PRN PRN Reason: Fever >100.4 Stop: 02/16/25 18:03 Last Admin: 01/17/25 19:41 Dose: 650 mg Documented By: MALLORY Cenobamate (Xcopri) (100 Mg Tablets) 0 ea PO HS NGUYỄN Stop: 02/17/25 20:59 Lamotrigine (Lamotrigine 100 Mg Tablet) 200 mg PO Q12HR NGUYỄN Stop: 02/17/25 08:59 Last Admin: 01/18/25 09:12 Dose: 200 mg Documented By: INDER Lorazepam (Lorazepam 2 Mg/Ml Vial) 2 mg IVP Q8HR PRN PRN Reason: Breakthrough seizure Stop: 01/22/25 18:11 Ondansetron HCl (Ondansetron Inj 2 Mg/Ml Inj 2 Ml) 4 mg IVP Q6H PRN; Protocol PRN Reason: NAUSEA OR VOMITING Stop: 02/16/25 18:03 Pantoprazole Sodium (Pantoprazole 40 Mg Tablet) 40 mg PO QDAY [facility] Stop: 02/17/25 08:59 Last Admin: 01/18/25 09:12 Dose: 40 mg Documented By: INDER Sertraline HCl (Sertraline Hcl 25 Mg Tablet) 100 mg PO QDAY [facility] Stop: 02/17/25 09:44 Last Admin: 01/18/25 10:05 Dose: 100 mg Documented By: PENG Topiramate (Topiramate 100 Mg Tablet) 100 mg PO BID [facility] Stop: 02/16/25 20:59 Last Admin: 01/18/25 09:12 Dose: 100 mg Documented By: Admin: 01/17/25 21:16 Dose: 100 mg Documented By: RAZA Discontinued Medications Sodium Chloride (Ns) 1,000 mls @ 80 mls/hr IV .[id number] ONE Stop: 01/18/25 06:57 Last Infusion: 01/18/25 19:06 Dose: Infused Documented By: Admin: 01/17/25 19:41 Dose: 80 mls/hr Documented By: MALLORY Magnesium Sulfate (Magnesium Sulfate Ivpb) 4 gm in 50 mls @ 12.5 mls/hr IV X1 ONE Stop: 01/17/25 22:48 Last Infusion: 01/18/25 19:06 Dose: Infused Documented By: Admin: 01/17/25 19:40 Dose: 12.5 mls/hr Documented By: MALLORY Potassium Chloride (Kcl Ivpb) 10 meq in 100 mls @ 100 mls/hr IV Q1H NGUYỄN Stop: 01/18/25 11:57 Last Infusion: 01/18/25 19:05 Dose: Infused Documented By: Admin: 01/18/25 09:32 Dose: 100 mls/hr Documented By: PENG Ketorolac Tromethamine (Ketorolac 10 Mg Tablet) 15 mg PO X1 ONE Stop: 01/17/25 21:51 Last Admin: 01/17/25 22:25 Dose: 15 mg Documented By: RAZA Lactulose (Lactulose Syrup 20 Gm/30 Ml Udc) 20 gm PO X1 ONE; Protocol Stop: 01/17/25 17:17 Last Admin: 01/17/25 18:13 Dose: 20 gm Documented By: MADISON Lamotrigine (Lamotrigine 100 Mg Tablet) 150 mg PO BID [facility] Stop: 02/16/25 20:59 Last Admin: 01/18/25 01:36 Dose: Not Given Documented By: RAZA Non-Admin Reason: Medication Not Available Levetiracetam (Levetiracetam Inj 100 Mg/Ml Vial 5ml) 1,000 mg IVP X1 ONE Stop: 01/17/25 17:25 Last Admin: 01/17/25 18:14 Dose: 1,000 mg Documented By: MADISON Lorazepam (Lorazepam 2 Mg/Ml Vial) 2 mg IM X1 ONE Stop: 01/17/25 17:04 Last Admin: 01/17/25 17:14 Dose: 2 mg Documented By: OREN Magnesium Oxide (Magnesium Oxide 400 Mg Tablet) 400 mg PO X1 ONE Stop: 01/17/25 17:16 Last Admin: 01/17/25 18:13 Dose: 400 mg Documented By: MADISON Non-Formulary Medication (Non-Formulary *See Comments* 1 Ea Ea) 10 ea PO HS NGUYỄN Stop: 02/16/25 20:59 Non-Formulary Medication (Cenobamate [Xcopri]) 300 mg PO HS NGUYỄN Stop: 02/17/25 20:59 Potassium Chloride (Potassium Chloride 20 Meq Tabcr) 40 meq PO X1 ONE Stop: 01/17/25 18:09 Last Admin: 01/17/25 18:20 Dose: 40 meq Documented By: MADISON Potassium Chloride (Potassium Chloride 10% 20 Meq/15 Ml Udc) 40 meq GT X1 ONE Stop: 01/18/25 09:44 Last Admin: 01/18/25 10:06 Dose: 40 meq Documented By: PENG As noted Consultations Consultation(s) initiated? (list below): Yes Consultation #1 (Physician, Specialty, Details): I consulted Dr. Bennett, neurology, who agreed with plan for replacing magnesium, lactulose, loading patient with Keppra and obtaining an MRI with and without contrast of the brain as well as an EEG and admission to medicine Time: 17:25 Consultation #2 (Physician, Specialty, Details): Dr. Humphreys (resident inspector) on Dr. Doreen amaya, internal medicine, who agreed to evaluate the patient for admission and was noted at the bedside evaluating her at 5:45 PM Time: 17:40 Diagnosis Seizure Differential Diagnosis: intractable seizure disorder, focal seizure, generalized seizure and epileptic seizure Most likely diagnosis given after review of the tests above:: Breakthrough seizure Admission Indicated Admission indicated?: indicated Admission Request Was there a request for admission?: Yes Admission Attestation Admission request attestation: Discussed case with [] from Hospitalist service regarding admission. Discussed patients ED course, exam findings, labs, and radiology results. The Hospitalist [agrees,declines] to accept the patient for admission. Disposition Plan Disposition Plan: Admit Discharge Plan Plan Patient Disposition: Admit Acute Care w/in Hospital Problem List Clinical Impression: Seizure
[2025-01-17 17:36] LABS: Lactate (Lactic Acid) 2.1 mMol/L (0.4-2.0)
[2025-01-17] MEDS: LACTULOSE SYRUP 20 GM/30 ML UDC PO (18:13)
[2025-01-17] MEDS: MAGNESIUM OXIDE 400 MG TABLET PO (18:13)
[2025-01-17] MEDS: levETIRAcetam INJ 100 MG/ML VIAL 5ML 1000 MG IVP (18:14)
--- NOTE | 2025-01-17 18:26 | PD.RESHP ---
Documentation for date of: 01/17/25 HPI History of Present Illness Chief complaint: Breakthrough seizure History of present illness: Patient is in postictal phase and got limited history from her. No family at the bedside A 39-year-old female with significant past medical history of seizure disorder brought to the hospital with chief complaints of seizures since afternoon on the day of admission. On chart review, patient noted to have multiple seizure episodes over the last couple of months and came to the ED and discharged from there as patient is found to have alcohol intoxication at the time of seizure episodes. Patient reported that she had sudden onset seizure episode while she is sitting in the couch which lasted for 2 minutes following which she was brought to the ED by her neighbor and on the way she also noted to have 1 more seizure. Per ED doctor, patient noted to have 1 seizure episode lasting for 30 seconds in the ED. Reported that last alcohol consumption is 2 days ago and drank only 2 beers. Denies fever, burning micturition, shortness of breath, abdominal pain, nausea, vomitings, illicit drug abuse, medication and complaints. ED course: - Vitals at the time of admission is significant for blood pressure 158/107 mmHg - Labs at the time of admission are significant for potassium 3.3, lactic 2.1, magnesium 1.4, AST 93, ALT 67 - Head CT done during this admission showed large area of encephalomalacia in the left temporal lobe, severe artifact secondary to neurotransmitter leads - Patient is admitted in the hospital for breakthrough seizure and further evaluation Past medical history: Not significant Past surgical history: Not significant Social history: Lives with her mother, no children. Smokes 2-3 beers in a week, takes marijuana pills once in a while and denied smoking tobacco, other illicit drug abuse Allergies: morphine, latex, adhesive tape Review of Systems Review of Systems Systems Reviewed: All systems reviewed, normal except as documented Exam Vital Signs Temp Pulse Resp BP Pulse Ox O2 Del Method 100.2 F 91 18 156/92 H 95 Room Air 01/17/25 17:06 01/17/25 17:20 01/17/25 17:06 01/17/25 17:06 01/17/25 17:06 01/17/25 17:06 Narrative Exam General: Awake. HEENT: Normocephalic, atraumatic, mucous membranes moist. Heart: Regular rate and rhythm, no murmurs. Lungs: Clear to auscultation with no wheezing or crackles. Abdomen: Soft, nondistended, nontender, positive bowel sounds. ?No guarding or rebound tenderness. Neurologic: Alert and oriented x3, no gross neurological deficit, and patient able to move all 4 extremities. Extremities: No edema. Skin: No rash or ecchymoses. Results: Labs 01/18/25 05:28 01/18/25 05:28 Labs: Short CBC 01/17/25 Range/Units 15:28 WBC 7.4 (3.6-11.0) Thou/mm3 Hgb 13.1 (12.0-16.0) g/dL Hct 37.4 (36.0-46.0) % Plt Count 205 D (140-440) Thou/mm3 BMP 01/17/25 15:28 Sodium 140 Potassium 3.3 L Chloride 106 Carbon Dioxide 20.8 BUN 6 L Creatinine 0.6 Glucose 114 H Calcium 9.1 Cardiac Enzymes 01/17/25 Range/Units 15:28 Troponin I < 0.002 (0.0-0.045) ng/mL Liver Function 01/17/25 Range/Units 15:28 Total Bilirubin 0.8 (0.3-1.2) mg/dL AST 93 H (0-34) U/L ALT 67 H (10-49) U/L Alkaline Phosphatase 75 (46-116) U/L Albumin 4.4 (3.5-5.0) gm/dL Quality Measures Quality Measures VTE prophylaxis Medications Home Medications and Allergies Home Medications ?Medication ?Instructions ?Recorded ?Confirmed ?Type lamotrigine 150 mg tablet 200 mg PO BID 11/17/24 01/18/25 History sertraline 100 mg tablet 100 mg PO QDAY 11/17/24 01/17/25 History cenobamate 100 mg tablet (Xcopri) 300 mg PO HS 01/17/25 01/18/25 History cholecalciferol (vitamin D3) 50 50 mcg PO DAILY 01/18/25 01/18/25 History mcg (2,000 unit) capsule lamotrigine 200 mg tablet 200 mg PO Q12H 01/18/25 01/18/25 History Allergies Allergy/AdvReac Type Severity Reaction Status Date / Time adhesive tape Allergy Severe Hives Verified 01/17/25 17:29 latex Allergy Severe Hives Verified 01/17/25 17:29 morphine Allergy Severe Swelling Verified 01/17/25 17:29 of Lip/Tongue/Throat Visit Medications Acetaminophen (Acetaminophen 325 Mg Tablet) 650 mg PO Q6H PRN PRN Reason: Fever >100.4 Stop: 02/16/25 18:03 Lamotrigine (Lamotrigine 100 Mg Tablet) 150 mg PO BID NGUYNỄ Stop: 02/16/25 20:59 Lorazepam (Lorazepam 2 Mg/Ml Vial) 2 mg IVP Q8HR PRN PRN Reason: Breakthrough seizure Stop: 01/22/25 18:11 Ondansetron HCl (Ondansetron Inj 2 Mg/Ml Inj 2 Ml) 4 mg IVP Q6H PRN; Protocol PRN Reason: NAUSEA OR VOMITING Stop: 02/16/25 18:03 Pantoprazole Sodium (Pantoprazole 40 Mg Tablet) 40 mg PO QDAY NGUYỄN Stop: 02/17/25 08:59 Topiramate (Topiramate 100 Mg Tablet) 100 mg PO BID NGUYỄN Stop: 02/16/25 20:59 Discontinued Medications Lactulose (Lactulose Syrup 20 Gm/30 Ml Udc) 20 gm PO X1 ONE; Protocol Stop: 01/17/25 17:17 Last Admin: 01/17/25 18:13 Dose: 20 gm Levetiracetam (Levetiracetam Inj 100 Mg/Ml Vial 5ml) 1,000 mg IVP X1 ONE Stop: 01/17/25 17:25 Last Admin: 01/17/25 18:14 Dose: 1,000 mg Lorazepam (Lorazepam 2 Mg/Ml Vial) 2 mg IM X1 ONE Stop: 01/17/25 17:04 Last Admin: 01/17/25 17:14 Dose: 2 mg Magnesium Oxide (Magnesium Oxide 400 Mg Tablet) 400 mg PO X1 ONE Stop: 01/17/25 17:16 Last Admin: 01/17/25 18:13 Dose: 400 mg Potassium Chloride (Potassium Chloride 20 Meq Tabcr) 40 meq PO X1 ONE Stop: 01/17/25 18:09 Last Admin: 01/17/25 18:20 Dose: 40 meq Assessment & Plan Plan A 39-year-old female with significant past medical history of seizure disorder brought to the hospital with chief complaints of seizures since afternoon on the day of admission. # Breakthrough seizures - Brought to the hospital with chief complaints of seizures since afternoon on the day of admission. - Reported that last alcohol consumption is 2 days ago and drank only 2 beers. - Denies fever, burning micturition, shortness of breath, abdominal pain, nausea, vomitings, illicit drug abuse, medication and complaints. - Does not remember the last episode of seizure - Follows with neurologist in [facility] and last visit is several months ago Plan - Loading dose of Keppra 1000 mg is given and 2 mg of IM lorazepam is given in the ED for breakthrough seizures - Received home lamotrigine 150 mg twice daily, perampanel 10 mg at bedtime, topiramate 100 mg twice daily. - Lorazepam 2 mg as needed for breakthrough seizures - Consulted neurologist, Dr Bedoya and recommended MRI brain with and without contrast, EEG which is ordered - Seizure precautions # Hypokalemia # Hypomagnesemia - Potassium at the time of admission is 3.3 and magnesium is 1.4 Plan - Will replete the electrolytes and continue to monitor them # Transaminitis - AST is 93, ALT is 67 - Patient noted to have elevated transaminase levels during the previous visits to - Likely from alcoholic liver disease versus fatty liver Plan - Will continue to monitor transaminase levels Hospital Maintenance: Dispo: Tele DVT ppx: SCD GI ppx: Pantoprazole Diet: Regular IV lines: Peripheral Code status: Full Patient plan of care was discussed with the attending physician, Dr. Doreen Webb, PGY2 Attending Provider Attestation/Addendum I have examined the patient, reviewed labs and imaging findings, discussed the case with the resident(s), and reviewed entered orders. I agree with the plan of care as outlined in this note, with these additional summaries/recommendations: After examination of the patient and review of the clinical data, I feel that this patient needs admission to the hospital for further treatment and evaluation. Patient is a 39-year-old female with a medical history of seizure disorder and lobotomy presents to [facility] emergency department on 01/17/2025 with chief complaint of breakthrough seizure. Patient reports she had a breakthrough seizure this morning at her house for an unknown period of time and was brought here by a neighbor and subsequently had another seizure in front of the hospital and was brought in in a wheelchair in a postictal state. She reportedly follows a neurologist in [facility] although has not seen him in a year. Patient will be admitted for breakthrough seizures in the setting of seizure disorder. Given loading dose of Keppra and 2 mg IV lorazepam in the emergency room. Continue home lamotrigine, perampanel, and topiramate. Seizure precautions. In-house neurology consulted who recommends MRI brain and EEG which was ordered. Mild hypokalemia and hypomagnesia, replacement given. Follow-up repeat levels. Minimal transaminitis on chemistry panel possibly related to alcohol use versus medication induced. Nonetheless transaminitis is mild at this time and no intervention needed at this time. Patient updated on the plan and in agreement. All questions answered to satisfaction. Please see residents note for additional details of management. Dr. Doreen MD
[2025-01-17 18:43] LABS: Creatine Kinase 63 U/L (34-171)
[2025-01-17 18:50] LABS: Collection Type, Urine Voided
[2025-01-17 18:56] LABS: Bilirubin,Urine 1+ (Negative); Blood,Urine Negative (Negative); Clarity,Urine Turbid (Clear/Hazy); Color,Urine Yellow (Lt Yel-Yel); Culture Indicated,Urine Not Indicated; Glucose, Urine Negative (Negative); Ketones,Urine 2+ (Negative); Leukocyte Esterase,Urine Negative (Negative); Nitrite,Urine Negative (Negative); PH,Urine 7.5 (5.0-7.0); Protein,Urine 1+ (Neg - Trace); RBC,Urine 2 /hpf (0-3); Specific Gravity,Urine 1.031 (1.001-1.035); Squamous Epithelial Cell,Urine 19 /hpf (0-5); Urobilinogen,Urine 3.0 mg/dL (0.0-1.0); WBC,Urine 2 /hpf (0-5)
[2025-01-17 19:09] LABS: Amphetamine/Methamp Scrn,U Negative (Negative); Barbiturate Screen,Urine Negative (Negative); Benzodiazepines Screen,Urine Positive (Negative); Benzoylecgonine Screen, Ur Negative (Negative); Fentanyl Screen,Urine Negative (Negative); Opiate Screen,Urine Negative (Negative); THC Screen,Urine Positive (Negative)
[2025-01-17 19:35] VITALS: BP 124/85; PULSE 89; RESP 20; O2SAT 98
[2025-01-17] MEDS: Magnesium Sulfate 4 GM Ivpb 4 GM/50 ML BAG IV (19:40)
[2025-01-17] MEDS: SODIUM CHLORIDE 0.9% 1000 ML 1,000 ML 80 ML IV (19:41)
[2025-01-17] MEDS: ACETAMINOPHEN 325 MG TABLET 650 MG PO (19:41)
[2025-01-17 20:32] LABS: Reflex Lactate? Y
[2025-01-17 20:46] LABS: Lactic Acid, 3 HR 2.2 mMol/L (0.4-2.0)
[2025-01-17] MEDS: TOPIRAMATE 100 MG TABLET PO (21:16)
--- NOTE | 2025-01-17 21:30 | PC.NURSE ---
unable to get lamotrigine as it is not available. I notified Dr. Pelayo that we had 25mg in chewable, but 150 mg was ordered. He said ok to skip this dose and resume in am for next sheduled dose.
[2025-01-17] MEDS: KETOROLAC 10 MG TABLET 15 MG PO (22:25)
[2025-01-18] VITALS: BP 142/92; PULSE 72; RESP 20; TEMP 36.1; O2SAT 98
--- NOTE | 2025-01-18 02:07 | RESP.EEG ---
EEG completed and ready for review
[2025-01-18 04:00] VITALS: BP 135/85; PULSE 80; RESP 30; TEMP 36.7; O2SAT 97
[2025-01-18 06:12] LABS: Basophils # (Auto) 0.0 Thou/mm3 (0.0-0.2); Basophils % (Auto) 1 % (0-2.5); Eosinophils # (Auto) 0.1 Thou/mm3 (0.0-0.5); Eosinophils % (Auto) 1 % (0-10); Hematocrit 33.1 % (36.0-46.0); Hemoglobin 11.2 g/dL (12.0-16.0); Immature Granulocytes Auto 0.03 Thou/mm3 (0.00-0.00); Lymphocytes # (Auto) 2.3 Thou/mm3 (1.0-4.8); Lymphocytes % (Auto) 33 % (10-50); Mean Corpuscular HGB Conc 33.8 g/dl (31.0-37.0); Mean Corpuscular Hemoglobin 33.8 pg (25.0-35.0); Mean Corpuscular Volume 100 fL (80-100); Monocytes # (Auto) 0.5 Thou/mm3 (0.0-0.8); Monocytes % (Auto) 7 % (0-12); Neutrophils # (Auto) 4.1 Thou/mm3 (1.8-7.7); Neutrophils % (Auto) 58 % (37-80); Nucleated Red Blood Cell # 0.00 Thou/mm3 (0.00-0.00); Nucleated Red Blood Cell % 0 /100 WBC (0); Platelet Count 157 Thou/mm3 (140-440); RDW Standard Deviation 49.4 fL (36.4-46.3); Red Blood Count 3.31 Miln/mm3 (4.00-5.20); White Blood Count 7.0 Thou/mm3 (3.6-11.0)
[2025-01-18 06:28] LABS: Alanine Aminotransferase 53 U/L (10-49); Albumin, Serum 3.8 gm/dL (3.5-5.0); Albumin/Globulin Ratio 1.9 (1.2-2.2); Alkaline Phosphatase 61 U/L (46-116); Anion Gap 11 (7-16); Aspartate Amino Transferase 79 U/L (0-34); BUN/Creatinine Ratio 12 Ratio (12-20); Bilirubin,Total 0.7 mg/dL (0.3-1.2); Blood Urea Nitrogen 7 mg/dL (9-23); Calcium 8.6 mg/dL (8.3-10.6); Calcium (Corrected) 8.8 mg/dL (8.5-10.1); Carbon Dioxide 20.3 mMol/L (20.0-31.0); Chloride 109 mMol/L (98-107); Creatinine (Component) 0.6 mg/dL (0.6-1.3); Estimated Creatinine Clearance 135.1 mL/min (>60); Globulin 2.0 gm/dL (2.3-3.5); Glucose 109 mg/dL (74-106); Magnesium 2.0 mg/dL (1.6-2.6); Osmolality,Calculated 278 (275-295); Phosphorous 2.4 mg/dL (2.4-5.1); Potassium 3.1 mMol/L (3.4-5.1); Sodium 140 mMol/L (136-145); Thyroid Stimulating Hormone 3.20 uIU/mL (0.55-4.78); Total Protein 5.8 gm/dL (5.7-8.2); eGFR > 60 See Note
[2025-01-18 08:00] VITALS: BP 124/83; PULSE 72; PULSE 81; RESP 27; TEMP 36.2; O2SAT 97
[2025-01-18 08:53] LABS: Lactate (Lactic Acid) 2.2 mMol/L (0.4-2.0)
[2025-01-18] MEDS: TOPIRAMATE 100 MG TABLET PO ×2 (09:12→20:40)
[2025-01-18] MEDS: PANTOPRAZOLE 40 MG TABLET PO (09:12)
[2025-01-18 09:21] LABS: Ammonia < 10 uMol/L (11-32)
[2025-01-18] MEDS: POTASSIUM CHL 10 mEq IVPB 10 MEQ/100 ML BAG 100 MEQ IV (09:32)
[2025-01-18] MEDS: SERTRALINE HCL 25 MG TABLET 100 MG PO (10:05)
[2025-01-18] MEDS: POTASSIUM CHLORIDE 10% 20 MEQ/15 ML UDC 40 MEQ GT (10:06)
--- NOTE | 2025-01-18 11:27 | PC.SS ---
Shanell Wang is a 39 year-old female admitted to [facility] for Breakthrough SZ. SS conducted bedside contact with the patient to complete initial assessment and to discuss discharge planning. Role and reason explained. Patient confirmed demographic information. Patient identifies mother Mira Childs [phone] as her surrogate decision maker. Pt states she is able to complete all ADL?s independently. No need for any source of DME. Pts does not possess a PCP here in this area as shes from [place] her PCP is Dr. Hunt. Pharmacy of choice is [facility]. Discharge options discussed and the pt wishes to return home.? Family will provide transportation upon DC. No further intervention required at this time, social work therapist would be available to address any further concerns. DC Plan: Home Contact: Mom Address: Confirmed on face sheet PCP: Dr. Hunt
[2025-01-18 11:50] LABS: Hepatitis A Antibody IgM Non Reactive (Non React); Hepatitis B Core Antibody IgM Non Reactive (Non React); Hepatitis B Surface Antigen Non Reactive (Non React); Hepatitis C Antibody Non Reactive (Non React)
[2025-01-18 11:55] LABS: Reflex Lactate? Y
[2025-01-18 12:00] VITALS: BP 134/98; PULSE 102; PULSE 89; RESP 29; TEMP 36.1; O2SAT 97
[2025-01-18 12:28] LABS: Lactic Acid, 3 HR 3.7 mMol/L (0.4-2.0)
--- NOTE | 2025-01-18 13:25 | ESPR_ITS ---
<Statement entered by Jesús Webb MD - 01/18/25 15:48> Patient is seen and examined at bedside. Noted to have no further episodes of seizures overnight and appears more awake and alert today. Reported that she had temporal lobectomy for refractory seizures and got stimulator leads placed but despite that patient continued to have seizures. Reported that she is stressed over the last couple of days and also noted to have alcohol consumption in the last couple of days. Recommended patient to not drink any more alcohol. Patient was supposed to get her MRI with contrast and without contrast but we are trying to find the information of the stimulator leads as of now. Patient is trying to talk to family to get the information card and once we retry it we will proceed with the MRI. I have personally seen and examined the patient, agree with residents assessment and plan Patient plan of care was discussed with the attending physician, Dr. Doreen Webb, PGY2 Documentation for date of: 01/18/25 Subjective Subjective Interval history: Patient is now fully awake and no longer post-ictal. She remembers being drowsy yesterday but feels much clearer today. Denies any seizures overnight. No headaches, no new weakness, no vision changes, no nausea or vomiting. She reports that over the last 2 weeks her seizures have been occurring more frequently, every couple of days, which she relates to stress at home involving her mother and her mother?s dog. Last alcohol use was 3 days ago and only two beers; denies withdrawal symptoms. Denies drug use other than occasional marijuana. Reports full medication adherence and confirms home medications: Xcopri 300 mg nightly, Lamotrigine 200 mg BID, Topiramate 100 mg BID. She states she has her device implanted for seizures for ~8 years and battery recently replaced; she is looking for the MRI safety card and may ask a family member to bring a copy. No fever, chills, urinary symptoms, or cough. No abdominal pain. Tolerating oral intake. No dizziness this morning. Reports feeling ?tired but better.? Exam Vital Signs Temp Pulse Resp BP Pulse Ox O2 Del Method 97.0 F 102 H 29 H 134/98 H 97 Room Air 01/18/25 12:00 01/18/25 12:00 01/18/25 12:00 01/18/25 12:00 01/18/25 12:00 01/18/25 12:00 Narrative Exam General: Awake. HEENT: Normocephalic, atraumatic, mucous membranes moist. Heart: Regular rate and rhythm, no murmurs. Lungs: Clear to auscultation with no wheezing or crackles. Abdomen: Soft, nondistended, nontender, positive bowel sounds. ?No guarding or rebound tenderness. Neurologic: Alert and oriented x3, no gross neurological deficit, and patient able to move all 4 extremities. Extremities: No edema. Skin: No rash or ecchymoses. Objective Labs 01/18/25 05:28 01/18/25 05:28 Labs: Laboratory Results - last 24 hr 01/17/25 01/17/25 01/17/25 15:28 17:20 18:42 WBC 7.4 RBC 3.83 L Hgb 13.1 Hct 37.4 MCV 98 MCH 34.2 MCHC 35.0 RDW Std Deviation 48.6 H Plt Count 205 D Neut % (Auto) 73 Lymph % (Auto) 20 [place] % (Auto) 7 Eos % (Auto) 0 Baso % (Auto) 0 Neut # (Auto) 5.4 Lymph # (Auto) 1.5 [place] # (Auto) 0.5 Eos # (Auto) 0.0 Baso # (Auto) 0.0 Immature Gran # (Auto) 0.02 H Absolute Nucleated RBC 0.00 Immature Gran % 0 Nucleated RBC % 0 PT 10.9 INR 1.0 APTT 26.3 Sodium 140 Potassium 3.3 L Chloride 106 Carbon Dioxide 20.8 Anion Gap 13 BUN 6 L Creatinine 0.6 Estim Creat Clear Calc 134.6 eGFR > 60 BUN/Creatinine Ratio 10 L Glucose 114 H Calculated Osmolality 278 Lactic Acid 2.1 H Calcium 9.1 Corrected Calcium 9.1 Phosphorus Magnesium 1.4 L Total Bilirubin 0.8 AST 93 H ALT 67 H Alkaline Phosphatase 75 Ammonia 38 H Total Creatine Kinase 63 D Troponin I < 0.002 Total Protein 6.7 Albumin 4.4 Globulin 2.3 Albumin/Globulin Ratio 1.9 Lipase 49 TSH Ur Collection Type Voided Urine Color Yellow Urine Clarity Turbid A Urine pH 7.5 H Ur Specific [place] 1.031 Urine Protein 1+ A Urine Glucose (UA) Negative Urine Ketones 2+ A Urine Blood Negative Urine Nitrite Negative Urine Bilirubin 1+ A Urine Urobilinogen (Auto) 3.0 Ur Leukocyte Esterase Negative Urine RBC 2 Urine WBC 2 Ur Squamous Epith Cells 19 H Urine Bacteria None Ur Culture Indicated? Not Indicated Urine Opiates Screen Negative Urine Fentanyl Screen Negative Ur Barbiturates Screen Negative U Amphetamin/Meth Scrn Negative U Benzodiazepines Scrn Positive A U Cocaine Metab Screen Negative U Marijuana (THC) Screen Positive A Ethyl Alcohol < 3.0 Hepatitis A IgM Ab Hep Bs Antigen Hep B Core IgM Ab Hepatitis C Antibody 01/17/25 01/18/25 01/18/25 20:41 05:28 08:46 WBC 7.0 RBC 3.31 L Hgb 11.2 L Hct 33.1 L MCV 100 MCH 33.8 MCHC 33.8 RDW Std Deviation 49.4 H Plt Count 157 D Neut % (Auto) 58 Lymph % (Auto) 33 [place] % (Auto) 7 Eos % (Auto) 1 Baso % (Auto) 1 Neut # (Auto) 4.1 Lymph # (Auto) 2.3 [place] # (Auto) 0.5 Eos # (Auto) 0.1 Baso # (Auto) 0.0 Immature Gran # (Auto) 0.03 H Absolute Nucleated RBC 0.00 Immature Gran % 0 Nucleated RBC % 0 PT INR APTT Sodium 140 Potassium 3.1 L Chloride 109 H Carbon Dioxide 20.3 Anion Gap 11 BUN 7 L Creatinine 0.6 Estim Creat Clear Calc 135.1 eGFR > 60 BUN/Creatinine Ratio 12 Glucose 109 H Calculated Osmolality 278 Lactic Acid 2.2 H 2.2 H Calcium 8.6 Corrected Calcium 8.8 Phosphorus 2.4 Magnesium 2.0 Total Bilirubin 0.7 AST 79 H ALT 53 H Alkaline Phosphatase 61 Ammonia < 10 L Total Creatine Kinase Troponin I Total Protein 5.8 Albumin 3.8 D Globulin 2.0 L Albumin/Globulin Ratio 1.9 Lipase TSH 3.20 Ur Collection Type Urine Color Urine Clarity Urine pH Ur Specific [place] Urine Protein Urine Glucose (UA) Urine Ketones Urine Blood Urine Nitrite Urine Bilirubin Urine Urobilinogen (Auto) Ur Leukocyte Esterase Urine RBC Urine WBC Ur Squamous Epith Cells Urine Bacteria Ur Culture Indicated? Urine Opiates Screen Urine Fentanyl Screen Ur Barbiturates Screen U Amphetamin/Meth Scrn U Benzodiazepines Scrn U Cocaine Metab Screen U Marijuana (THC) Screen Ethyl Alcohol Hepatitis A IgM Ab Non Reactive Hep Bs Antigen Non Reactive Hep B Core IgM Ab Non Reactive Hepatitis C Antibody Non Reactive 01/18/25 12:13 WBC RBC Hgb Hct MCV MCH MCHC RDW Std Deviation Plt Count Neut % (Auto) Lymph % (Auto) [place] % (Auto) Eos % (Auto) Baso % (Auto) Neut # (Auto) Lymph # (Auto) [place] # (Auto) Eos # (Auto) Baso # (Auto) Immature Gran # (Auto) Absolute Nucleated RBC Immature Gran % Nucleated RBC % PT INR APTT Sodium Potassium Chloride Carbon Dioxide Anion Gap BUN Creatinine Estim Creat Clear Calc eGFR BUN/Creatinine Ratio Glucose Calculated Osmolality Lactic Acid 3.7 H Calcium Corrected Calcium Phosphorus Magnesium Total Bilirubin AST ALT Alkaline Phosphatase Ammonia Total Creatine Kinase Troponin I Total Protein Albumin Globulin Albumin/Globulin Ratio Lipase TSH Ur Collection Type Urine Color Urine Clarity Urine pH Ur Specific [place] Urine Protein Urine Glucose (UA) Urine Ketones Urine Blood Urine Nitrite Urine Bilirubin Urine Urobilinogen (Auto) Ur Leukocyte Esterase Urine RBC Urine WBC Ur Squamous Epith Cells Urine Bacteria Ur Culture Indicated? Urine Opiates Screen Urine Fentanyl Screen Ur Barbiturates Screen U Amphetamin/Meth Scrn U Benzodiazepines Scrn U Cocaine Metab Screen U Marijuana (THC) Screen Ethyl Alcohol Hepatitis A IgM Ab Hep Bs Antigen Hep B Core IgM Ab Hepatitis C Antibody Quality Measures Quality Measures VTE prophylaxis Assessment & Plan Assessment Current Active Medications: Generic Name Dose Route Start Last Admin Trade Name Freq PRN Reason Stop Dose Admin Acetaminophen 650 mg 01/17/25 18:04 01/17/25 19:41 Acetaminophen 325 Mg Tablet PO 02/16/25 18:03 650 mg Q6H PRN Administration Fever >100.4 Lamotrigine 200 mg 01/18/25 09:00 01/18/25 09:12 Lamotrigine 100 Mg Tablet PO 02/17/25 08:59 200 mg Q12HR NGUYỄN Administration Lorazepam 2 mg 01/17/25 18:12 Lorazepam 2 Mg/Ml Vial IVP 01/22/25 18:11 Q8HR PRN Breakthrough seizure Non-Formulary Medication 300 mg 01/18/25 21:00 Cenobamate [Xcopri] PO 02/17/25 20:59 HS NGUYỄN Ondansetron HCl 4 mg 01/17/25 18:04 Ondansetron Inj 2 Mg/Ml Inj 2 Ml IVP 02/16/25 18:03 Q6H PRN NAUSEA OR VOMITING Protocol Pantoprazole Sodium 40 mg 01/18/25 09:00 01/18/25 09:12 Pantoprazole 40 Mg Tablet PO 02/17/25 08:59 40 mg QDAY NGUYỄN Administration Sertraline HCl 100 mg 01/18/25 09:45 01/18/25 10:05 Sertraline Hcl 25 Mg Tablet PO 02/17/25 09:44 100 mg QDAY NGUYỄN Administration Topiramate 100 mg 01/17/25 21:00 01/18/25 09:12 Topiramate 100 Mg Tablet PO 02/16/25 20:59 100 mg BID NGUYỄN Administration Plan 39-year-old female with chronic seizure disorder s/p left temporal lobectomy and neurostimulator, admitted for breakthrough seizures likely due to increased recent seizure clustering, mild electrolyte abnormalities, and psychosocial stressors. # Breakthrough seizures Recurrent seizures over the last 2 weeks, worsened by psychosocial stress. No seizures overnight. On full home regimen now. Alcohol last use 3 days ago; no withdrawal signs. Plan: * Continue home regimen: Xcopri 300 mg QHS, Lamotrigine 200 mg BID, Topiramate 100 mg BID. * Lorazepam 2 mg PRN for seizure * EEG pending * MRI brain ordered, await device safety card * Continue seizure precautions * Follow neurology recommendations (Dr. Bedoya) # Hypokalemia # Hypomagnesemia Likely from poor intake, possible mild alcohol-related losses. K today 3.1, Mg 2.0. Plan: * Repleted with 10 meq of IV K then switched to 40 meq PO KCl * Monitor K and Mg daily * Replace to maintain K > 4, Mg > 2 # Transaminitis (mild, downtrending) Likely from alcoholic liver disease vs fatty liver. No abdominal complaints. Improving today. 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 No confusion, no asterixis. Plan: * No further action required * Continue monitoring if clinically indicated # Lactic acidosis (stable) Lactate 2.2, no trend for worsening. Likely post-ictal. Plan: * No further trend required * Continue to monitor for any changes Health Maintenance: Disposition: Telemetry Diet: Regular DVT prophylaxis: SCDs GI prophylaxis: Pantoprazole Code status: Full ----- Plan discussed with attending physician Dr. Logan and senior resident Dr. Tracey Eaton MD PGY-1 Internal Medicine Attending Provider Attestation/Addendum I have examined the patient, reviewed labs and imaging findings, discussed the case with the resident(s), and reviewed entered orders. I agree with the plan of care as outlined in this note, with these additional summaries/recommendations: Patient is a 39-year-old female with a medical history of seizure disorder and lobotomy presents to [facility] emergency department on 01/17/2025 with chief complaint of breakthrough seizure. Patient seen at bedside. No acute overnight events. Patient endorses a lengthy history of seizure disorder trying multiple different regimens of antiepileptics, lobotomy, and eventually device implanted in brain. Unclear at this time if device is responsive neurostimulation (RNS), deep brain stimulation (DBS) or release likely vagal nerve stimulation (VNS). Patient did provide phone number to contact rep for clarification. Patient also endorses significant stress in life with a recent passing of family member and also caring for other family members. She states she follows a neurologist in [facility] and is unclear when her follow-up appointment is. Last seen approximately 6 months ago?. Continue home lamotrigine, perampanel, and topiramate. Seizure precautions. In-house neurology consulted who recommends MRI brain and EEG which was ordered and pending results. Mild hypokalemia and hypomagnesia, replacement given. Follow-up repeat levels. Minimal transaminitis on chemistry panel possibly related to alcohol use versus medication induced. Nonetheless transaminitis is mild at this time and no intervention needed at this time. Patient updated on the plan and in agreement. All questions answered to satisfaction. Please see residents note for additional details of management. Dr. Doreen MD
[2025-01-18 16:00] VITALS: BP 119/94; PULSE 80; PULSE 83; RESP 29; TEMP 36.2; O2SAT 98
[2025-01-18 19:53] VITALS: BP 138/96; PULSE 82; RESP 14; TEMP 36.6; O2SAT 96
--- NOTE | 2025-01-18 20:51 | ESPR_ITS ---
Documentation for date of: 01/18/25 Subjective Subjective Interval history: Patient seen today at the bedside found awake, alert, orientedx3. No overnight events reported. Vital signs and labs reviewed. Patient with elevated LFTs possibly secondary to medications and alcohol use. Advised patient on cessation of alcohol while on current medications. Patient also had recent loss of a family member and endorses lots of stress recently which could be cause of breakthrough seizures. Patient unable to get MRI brain due to stimulator leads pending safety card, however we do not have capabilities to switch to MRI mode, can get EEG instead and can be cleared for discharge after read is done. Exam Vital Signs Temp Pulse Resp BP Pulse Ox O2 Del Method 97.8 F 82 14 138/96 H 96 Room Air 01/18/25 19:53 01/18/25 19:53 01/18/25 19:53 01/18/25 19:53 01/18/25 19:53 01/18/25 19:53 Narrative Exam Physical Exam GENERAL: NAD, AAOx3 HEENT: Moist mucosa. Eyes open, symmetrical, & clear CARDIO: Heart RRR, no obvious murmurs PULM: No noted coughing/dyspnea CTA B/L, no R/W/R GI: Abdomen soft, nondistended, no pain on palpation. BSx4 SKIN/MSK/EXT: No wounds/rashes/edema/amputations, no pain on palpation. Pedal pulses present B/L NEURO: AAOx3, no focal neuro deficits, able to move all 4 extremities Objective Labs 01/18/25 05:28 01/18/25 05:28 Labs: Laboratory Results - last 24 hr 01/18/25 01/18/25 01/18/25 05:28 08:46 12:13 WBC 7.0 RBC 3.31 L Hgb 11.2 L Hct 33.1 L MCV 100 MCH 33.8 MCHC 33.8 RDW Std Deviation 49.4 H Plt Count 157 D Neut % (Auto) 58 Lymph % (Auto) 33 [place] % (Auto) 7 Eos % (Auto) 1 Baso % (Auto) 1 Neut # (Auto) 4.1 Lymph # (Auto) 2.3 [place] # (Auto) 0.5 Eos # (Auto) 0.1 Baso # (Auto) 0.0 Immature Gran # (Auto) 0.03 H Absolute Nucleated RBC 0.00 Immature Gran % 0 Nucleated RBC % 0 Sodium 140 Potassium 3.1 L Chloride 109 H Carbon Dioxide 20.3 Anion Gap 11 BUN 7 L Creatinine 0.6 Estim Creat Clear Calc 135.1 eGFR > 60 BUN/Creatinine Ratio 12 Glucose 109 H Calculated Osmolality 278 Lactic Acid 2.2 H 3.7 H Calcium 8.6 Corrected Calcium 8.8 Phosphorus 2.4 Magnesium 2.0 Total Bilirubin 0.7 AST 79 H ALT 53 H Alkaline Phosphatase 61 Ammonia < 10 L Total Protein 5.8 Albumin 3.8 D Globulin 2.0 L Albumin/Globulin Ratio 1.9 TSH 3.20 Hepatitis A IgM Ab Non Reactive Hep Bs Antigen Non Reactive Hep B Core IgM Ab Non Reactive Hepatitis C Antibody Non Reactive Quality Measures Quality Measures none Assessment & Plan Assessment Current Active Medications: Generic Name Dose Route Start Last Admin Trade Name Freq PRN Reason Stop Dose Admin Acetaminophen 650 mg 01/17/25 18:04 01/17/25 19:41 Acetaminophen 325 Mg Tablet PO 02/16/25 18:03 650 mg Q6H PRN Administration Fever >100.4 Cenobamate (Xcopri) 0 ea 01/18/25 21:00 01/18/25 20:40 100 Mg Tablets PO 02/17/25 20:59 3 tablet HS NGUYỄN Administration Lamotrigine 200 mg 01/18/25 09:00 01/18/25 20:43 Lamotrigine 100 Mg Tablet PO 02/17/25 08:59 200 mg Q12HR NGUYỄN Administration Lorazepam 2 mg 01/17/25 18:12 Lorazepam 2 Mg/Ml Vial IVP 01/22/25 18:11 Q8HR PRN Breakthrough seizure Ondansetron HCl 4 mg 01/17/25 18:04 Ondansetron Inj 2 Mg/Ml Inj 2 Ml IVP 02/16/25 18:03 Q6H PRN NAUSEA OR VOMITING Protocol Pantoprazole Sodium 40 mg 01/18/25 09:00 01/18/25 09:12 Pantoprazole 40 Mg Tablet PO 02/17/25 08:59 40 mg QDAY NGUYỄN Administration Sertraline HCl 100 mg 01/18/25 09:45 01/18/25 10:05 Sertraline Hcl 25 Mg Tablet PO 02/17/25 09:44 100 mg QDAY NGUYỄN Administration Topiramate 100 mg 01/17/25 21:00 01/18/25 20:40 Topiramate 100 Mg Tablet PO 02/16/25 20:59 100 mg BID NGUYỄN Administration Plan 39-year-old female with chronic seizure disorder s/p left temporal lobectomy and neurostimulator, admitted for breakthrough seizures likely due to increased recent seizure clustering, mild electrolyte abnormalities, and psychosocial stressors. # Breakthrough seizures, likely stress related #History of seizure disorder Recurrent seizures over the last 2 weeks multiple episodes daily, worsened by recent stressful events at home in addition to alcohol use No seizure activity in last 24 hours States her first seizure was in 2006 and since then was being treated in , however has recently been here in [place] taking care of family member and has a recent loss in family which has contributed to her stress MRI brain has not been done due to stimulator leads and pending safety card, however we do not have capabilities to switch to MRI mode - Continue home regimen: Xcopri 300 mg QHS, Lamotrigine 200 mg BID, Topiramate 100 mg BID. - Ativan 2 mg PRN for breakthrough seizures - EEG pending - No need for MRI brain at this time can have EEG for now - Continue seizure precautions - Advised against alcohol use # Hypokalemia # Hypomagnesemia # Transaminitis (mild, downtrending) # Mildly elevated ammonia (38 yesterday) # Lactic acidosis (stable) - as per primary team Case discussed with my attending Dr. Aureliano Chavarria MD PGY-2 Attending Provider Attestation/Addendum I personally have seen and examined the patient at the bedside and agree with the residents findings, assessment and plan of care. Patient with a seizure disorder presented with breakthrough seizures are secondary to underlying stress. No seizures reported after admission. She is aware that she cannot drive. As she is compliant with current antiepileptic drugs and has a close follow-up with the neurologist [facility], will continue the same. EEG did not show any epileptiform discharges but it does not rule out the diagnosis of seizures. Will hold off on the MRI because of neuropace in place.
[2025-01-18] MEDS: KETOROLAC 10 MG TABLET 15 MG PO (23:32)
[2025-01-19] VITALS: BP 134/96; PULSE 74; RESP 15; TEMP 36.7; O2SAT 98
[2025-01-19] MEDS: HALOPERIDOL LACT INJ 5 MG/ML VIAL IM ×2 (02:11→02:50)
[2025-01-19] MEDS: LORazepam 2 MG/ML VIAL IM (02:16)
--- NOTE | 2025-01-19 02:31 | PD.RESEVENT ---
Documentation for date of: 01/19/25 Event Note Event Note: Code harris around 2AM: Patient was trying to leave AMA Patient was witnessed trying to leave the room with IV still in place and still attached to tele box. Seen walking into incorrect patient room. On assessment, she was alert but not oriented. Unable to correctly state the current month, year, or reason for hospitalization. When reorientation was attempted, she became combative. Patient was not deemed to have decision making capacity to leave AMA. IV access was lost. Patient was placed on 4 point restrint and given 5mg IM haldol x2, IM benadryl 50mg, IM ativan 2mg x2.
[2025-01-19] MEDS: LORazepam 2 MG/ML VIAL IVP (03:43)
[2025-01-19 04:00] VITALS: BP 129/81; PULSE 97; RESP 15; TEMP 36.1
[2025-01-19 08:00] VITALS: BP 149/103; PULSE 63; PULSE 80; RESP 18; TEMP 35.9; O2SAT 94
[2025-01-19 08:00] LABS: Basophils # (Auto) 0.0 Thou/mm3 (0.0-0.2); Basophils % (Auto) 0 % (0-2.5); Eosinophils # (Auto) 0.1 Thou/mm3 (0.0-0.5); Eosinophils % (Auto) 1 % (0-10); Hematocrit 34.7 % (36.0-46.0); Hemoglobin 11.4 g/dL (12.0-16.0); Immature Granulocytes Auto 0.02 Thou/mm3 (0.00-0.00); Lymphocytes # (Auto) 2.6 Thou/mm3 (1.0-4.8); Lymphocytes % (Auto) 37 % (10-50); Mean Corpuscular HGB Conc 32.9 g/dl (31.0-37.0); Mean Corpuscular Hemoglobin 34.5 pg (25.0-35.0); Mean Corpuscular Volume 105 fL (80-100); Monocytes # (Auto) 0.5 Thou/mm3 (0.0-0.8); Monocytes % (Auto) 7 % (0-12); Neutrophils # (Auto) 3.7 Thou/mm3 (1.8-7.7); Neutrophils % (Auto) 54 % (37-80); Nucleated Red Blood Cell # 0.00 Thou/mm3 (0.00-0.00); Nucleated Red Blood Cell % 0 /100 WBC (0); Platelet Count 161 Thou/mm3 (140-440); RDW Standard Deviation 52.5 fL (36.4-46.3); Red Blood Count 3.30 Miln/mm3 (4.00-5.20); White Blood Count 6.9 Thou/mm3 (3.6-11.0)
[2025-01-19 08:22] LABS: Alanine Aminotransferase 47 U/L (10-49); Albumin, Serum 4.1 gm/dL (3.5-5.0); Albumin/Globulin Ratio 2.1 (1.2-2.2); Alkaline Phosphatase 59 U/L (46-116); Anion Gap 11 (7-16); Aspartate Amino Transferase 60 U/L (0-34); BUN/Creatinine Ratio 10 Ratio (12-20); Bilirubin,Total 0.5 mg/dL (0.3-1.2); Blood Urea Nitrogen 7 mg/dL (9-23); Calcium 8.7 mg/dL (8.3-10.6); Calcium (Corrected) 8.7 mg/dL (8.5-10.1); Carbon Dioxide 20.7 mMol/L (20.0-31.0); Chloride 110 mMol/L (98-107); Creatinine (Component) 0.7 mg/dL (0.6-1.3); Estimated Creatinine Clearance 116.3 mL/min (>60); Globulin 2.0 gm/dL (2.3-3.5); Glucose 104 mg/dL (74-106); Osmolality,Calculated 281 (275-295); Potassium 3.7 mMol/L (3.4-5.1); Sodium 142 mMol/L (136-145); Total Protein 6.1 gm/dL (5.7-8.2); eGFR > 60 See Note
[2025-01-19] MEDS: PANTOPRAZOLE 40 MG TABLET PO (09:36)
[2025-01-19] MEDS: TOPIRAMATE 100 MG TABLET PO (09:36)
[2025-01-19] MEDS: SERTRALINE HCL 25 MG TABLET 100 MG PO (09:36)
--- NOTE | 2025-01-19 11:48 | ESDS_ITS ---
Planned Discharge Date 01/19/25 DS: Providers Provider Date of admission: 01/17/25 18:04 Primary care physician: Physician No Primary/Family Admitting Provider: Venkata Logan MD Attending Provider on Admission: Venkata Logan MD Consults: 01/18/25 14:27 Consult to Neurology / Tele-Neurology Routine Comment: Consulting Provider: Isaias Bedoya Attending Provider on DC: Venkata Logan MD Discharging Provider: Irene Eaton MD DS: Diagnosis Problem List Completed Was Problem List Reviewed/Reconciled?: Yes Hospital Course Hospital Course Hospital course: 39-year-old female with a chronic seizure disorder s/p left temporal lobectomy and neurostimulator, who was admitted for breakthrough seizures and acute altered mental status. She had a history of increased seizures over the past two weeks, exacerbated by stress from the recent of a family member and alcohol use. Upon admission, she was oriented but experienced an acute change in mental status overnight on 01/18/2025, following the administration of Haldol (2 doses), Lorazepam (2 doses), and Benadryl (50 mg). She became alert only to self, unable to answer basic orientation questions, and attempted to leave the room. This was interpreted as a sedation-related effect, though other potential causes such as medication toxicity were considered. Her EEG showed no epileptiform activity, and there was no evidence of new seizures during her stay. Her electrolytes were corrected (K 3.7, Mg 2.0), and her LFTs improved (AST 68 ALT 47). She had a mild elevation in ammonia that resolved by the morning of discharge. Lactate remained stable at 2.2, with no signs of metabolic derangement. Neurology cleared the patient for discharge after reviewing her case and EEG results. By the time of discharge, the patient was stable, alert, and oriented to person, with improvement in mental status and no further confusion. The patient was advised to avoid alcohol during her antiepileptic treatment and is scheduled to follow up with neurologist in [facility]. Diagnosis during admission: # Breakthrough seizures, likely stress related #History of seizure disorder # Hypokalemia # Hypomagnesemia # Transaminitis (mild, downtrending) # Mildly elevated ammonia # Lactic acidosis (stable) Discharge instructions: -Follow-up with PCP within 1 week of discharge. If you do not have appointment, please follow-up with the [facility] with Dr. Webb. Call [phone] to make an appointment. -Follow up with Neurologist Dr. Bedoya within 1week of discharge -Continue home medications -Avoid alcohol and sleep deprivation as it lowers seizure threshold -Return to ED if symptoms persist or return ----- Plan discussed with attending physician Dr. Khurram Eaton MD PGY-1 Internal Medicine Time Spent with Patient Time attestation: Total time spent providing and/or coordinating discharge services: Time spent: Greater than 30 minutes Exam Vital Signs Temp Pulse Resp BP Pulse Ox O2 Del Method 96.6 F L 80 18 149/103 H 94 L Room Air 01/19/25 08:00 01/19/25 08:00 01/19/25 08:00 01/19/25 08:00 01/19/25 08:00 01/19/25 08:00 Narrative Exam GENERAL: NAD, AAOx3 HEENT: Moist mucosa. Eyes open, symmetrical, & clear CARDIO: Heart RRR, no obvious murmurs PULM: No noted coughing/dyspnea CTA B/L, no R/W/R GI: Abdomen soft, nondistended, no pain on palpation. BSx4 SKIN/MSK/EXT: No wounds/rashes/edema/amputations, no pain on palpation. Pedal pulses present B/L NEURO: AAOx3, no focal neuro deficits, able to move all 4 extremities Discharge Plan Plan Patient Disposition: HOME (Self Care) Patient condition on transfer: Stable Care Plan Goals: -Follow-up with PCP within 1 week of discharge. If you do not have appointment, please follow-up with the [facility] with Dr. Webb. Call [phone] to make an appointment. -Follow up with Neurologist Dr. Bedoya within 1week of discharge -Continue home medications -Avoid alcohol and sleep deprivation as it lowers seizure threshold -Return to ED if symptoms persist or return Prescriptions/Referrals Prescriptions/Med Rec: Continued lamotrigine 150 mg tablet 200 mg PO BID Patient Comments: TAKE 1 TABLET BY MOUTH TWICE DAILY sertraline 100 mg tablet 100 mg PO QDAY topiramate [Topamax] 100 mg tablet 100 mg PO BID Qty: 60 0RF Xcopri 100 mg tablet 300 mg PO HS lamotrigine 200 mg tablet 200 mg PO Q12H cholecalciferol (vitamin D3) 50 mcg (2,000 unit) capsule 50 mcg PO DAILY Referrals: No Primary/Family,Physician [Primary Care Provider] Patient/Caregiver Discharge Instructions Education Materials: Treating Epilepsy: Medicines, Self-Care for Epilepsy, First Aid: Seizures, ED Alcohol Withdrawal Seizure Print Language: Burmese Stand Alone Forms: Shelly Award Info., Patient Portal Info Letter Discharge Order Discharge Orders: Discharge (Routine); Ordered 01/19/25 Ordered By: Jesús Webb Quality Discharge Quality Measures VTE prophylaxis MD Attestestation MD Attestation I have discussed and was present for the essential components of the discharge history, physical examination, diagnosis, and discharge treatment plan with the resident. I agree with the patient's discharge care as documented by the [facility] and amended herein by me. Fredy Paulson DO. The patient understood all discharge instructions, all questions were answered satisfactorily. The patient was instructed to return to the Emergency Department is symptoms worsened or persisted. Although this document has been carefully reviewed, there may still be some phonetic and other typographical errors. These errors are purely grammatical due to imperfections in the software program and should not be construed in any way to compromise the substance of the patient's medical care during this visit. \
[2025-01-25 06:47] LABS: Lamotrigine* 1.7 mcg/mL (2.5-15.0); Topiramate* 2.7 mcg/mL
== END 2025-01-19 11:24 | disposition home or self-care (01) | DRG 53 ==
LOC: SERX 17:15 → SERHOLD 18:25 → S2NX 21:05
PROVIDERS: Physician Assistant; Admitting Provider Student in an Organized Health Care Education/Training Program; Emergency Provider Emergency Medicine; Visit Provider Student in an Organized Health Care Education/Training Program
DX: G40.909 Epilepsy, unspecified, not intractable, without status epilepticus (principal); E87.6 Hypokalemia; E83.42 Hypomagnesemia; F10.129 Alcohol abuse with intoxication, unspecified; G93.89 Other specified disorders of brain; E87.20 Acidosis, unspecified; R79.89 Other specified abnormal findings of blood chemistry; R74.01 Elevation of levels of liver transaminase levels; Z79.899 Other long term (current) drug therapy; Z88.5 Allergy status to narcotic agent
CPT/HCPCS: 36415; 70450; 80053; 80074; 80175; 80201; 80307; 80320; 81001; 82140; 82550; 83605; 83690; 83735; 84100; 84443; 84484; 85025; 85610; 85730; 93005; 95816; 96365; 96366; 96372; 96375; 99283; J1200; J1630; J1953; J2060; J3475; J3480; J7030; A9270; G0480

== ENCOUNTER 2025-02-22 00:59 | Emergency (ER) | payer MEDICAID, SELFPAY ==
[2025-02-22] VITALS (7 sets, daily range): BP systolic 98–118; BP diastolic 61–74; PULSE 60–83; RESP 16–18; TEMP 36.4–36.6; O2SAT 96–100; BMI 39.4
--- NOTE | 2025-02-22 01:34 | PD.EDSEIZ ---
ED Seizures RME/HPI General Chief Complaint: Seizure Stated Complaint: SEIZURES Time Seen by Provider: 02/22/25 01:36 Arrival date/time: 02/22/25 00:59 RME / HPI RME / HPI Narrative: Dr. Bustamante?s Main ED Evaluation: 39yo female with a history of chronic seizure disorder s/p left temporal lobectomy and neurostimulator BIBA from home presents to the ED due to having seizures. Per EMS, patient had several seizures tonight at home. Patient admits to drinking 2 beers tonight, reporting she usually has seizures when she drinks. Denies any other medical complaints at this time. Denies any other associated symptoms. Related Data Home Medications ?Medication ?Instructions ?Recorded ?Confirmed lamotrigine 150 mg tablet 200 mg PO BID 11/17/24 01/18/25 sertraline 100 mg tablet 100 mg PO QDAY 11/17/24 01/17/25 cenobamate 100 mg tablet (Xcopri) 300 mg PO HS 01/17/25 01/18/25 cholecalciferol (vitamin D3) 50 50 mcg PO DAILY 01/18/25 01/18/25 mcg (2,000 unit) capsule lamotrigine 200 mg tablet 200 mg PO Q12H 01/18/25 01/18/25 Previous Rx's ?Medication ?Instructions ?Recorded topiramate 100 mg tablet (Topamax) 100 mg PO BID #60 tabs 11/17/24 Allergies Allergy/AdvReac Type Severity Reaction Status Date / Time adhesive tape Allergy Severe Hives Verified 01/17/25 17:29 latex Allergy Severe Hives Verified 01/17/25 17:29 morphine Allergy Severe Swelling Verified 01/17/25 17:29 of Lip/Tongue/Throat Review of Systems Review of Systems Systems Reviewed: All systems reviewed, normal except as documented ED Exam Narrative Physical exam: Generally patient is alert with a strong smell of alcohol on her breath, face shows some superficial abrasions to the lower forehead but no cephalhematoma, heart regular rate and rhythm, lungs clear to auscultation equal laterally, abdomen soft bowel sounds present nondistended nontender, neurologic exam showed no focal motor deficits with Felix Coma Scale of 15 Course Quality Measures none Orders Category Date Time Status Alcohol, Blood Medical Stat Lab 02/22/25 02:15 Received CBC Stat Lab 02/22/25 02:15 Completed CMP [Comprehensive Metabolic Panel] Stat Lab 02/22/25 02:15 Received Drug Screen,Urine Stat Lab 02/22/25 02:01 Completed UA, C/S IF [Urinalysis, C/S if Indicated] Stat Lab 02/22/25 02:01 Completed Vital Signs Vital signs: Vital Signs Temperature 98 F 02/22/25 01:04 Pulse Rate 65 02/22/25 01:04 Respiratory Rate 18 02/22/25 01:04 Blood Pressure 118/74 02/22/25 01:04 Pulse Oximetry (%) 98 02/22/25 01:04 Oxygen Delivery Method Room Air 02/22/25 01:04 Seizure MDM Narrative MDM Narrative:: Scribe Attestation: 02/22/25 Elena Rhodes am scribing for and in the presence of Dr. Bustamante. Patient is on multi antiseizure medication and has a neurostimulator. Fingerstick blood sugar was 98. Patient was observed here for prolonged length of time. Patient was told that her abuse of alcohol will lower her seizure threshold and contribute to seizures. She understands this. Patient will be discharged in stable condition. Urinary tox screen was negative. Patient data External records reviewed:: [facility] previous records (Per chart review, patient was admitted here on 01/17/25 for seizures.) and EMS form Clinical information provided by:: patient Social determinants that could affect healthcare access:: substance use Patient has the following chronic illnesses:: chronic seizure disorder s/p left temporal lobectomy and neurostimulator How is presenting disease/condition affected by chronic disease/condition?: caused by Evaluation data The following diagnostics were reviewed and interpreted by me:: lab results Lab and/or radiology exams considered but not ordered:: none Interpretation Summary: See MDM Medications / Prescriptions Medications or Prescriptions considered but not ordered:: none Medication administrations:: see above, if any Consultations Consultation(s) initiated? (list below): No Diagnosis Seizure Differential Diagnosis: other (See MDM) Most likely diagnosis given after review of the tests above:: see clinical impression below Admission Indicated Admission indicated?: not indicated Admission Request Was there a request for admission?: No Disposition Plan Disposition Plan: Discharge Discharge Attestation Discharge Attestation: The patient and all family members were given an opportunity to ask questions and understood the discharge instructions. Discharge instructions specifically effects, indications for sooner follow up or return to the emergency department, and the expected course of current diagnosis. Patient condition: Stable Discharge Plan Plan Patient Disposition: HOME (Self Care) Prescriptions/Referrals Prescriptions/Med Rec: No Action lamotrigine 150 mg tablet 200 mg PO BID Patient Comments: TAKE 1 TABLET BY MOUTH TWICE DAILY sertraline 100 mg tablet 100 mg PO QDAY topiramate [Topamax] 100 mg tablet 100 mg PO BID Qty: 60 0RF Xcopri 100 mg tablet 300 mg PO HS lamotrigine 200 mg tablet 200 mg PO Q12H cholecalciferol (vitamin D3) 50 mcg (2,000 unit) capsule 50 mcg PO DAILY Problem List Clinical Impression: Seizure, Alcohol abuse Patient/Caregiver Discharge Instructions Education Materials: ED Seizure, Recurrent (Adult), ED Alcohol Abuse Additional Instructions: Stop your consumption of alcohol. Continue all current medications. Print Language: Croatian Stand Alone Forms: Shelly Award Info., Patient Portal Info Letter
[2025-02-22 02:08] LABS: Collection Type, Urine Clean Catch; WBC,Urine 0 /hpf (0-5)
[2025-02-22 02:17] LABS: Bacteria,Urine Rare; Bilirubin,Urine Negative (Negative); Blood,Urine Negative (Negative); Clarity,Urine Clear (Clear/Hazy); Color,Urine Colorless (Lt Yel-Yel); Culture Indicated,Urine Not Indicated; Glucose, Urine Negative (Negative); Ketones,Urine Negative (Negative); Leukocyte Esterase,Urine Negative (Negative); Nitrite,Urine Negative (Negative); PH,Urine 7.0 (5.0-7.0); Protein,Urine Negative (Neg - Trace); RBC,Urine < 1 /hpf (0-3); Specific Gravity,Urine 1.004 (1.001-1.035); Squamous Epithelial Cell,Urine < 1 /hpf (0-5); Urobilinogen,Urine Negative mg/dL (0.0-1.0)
[2025-02-22 02:20] LABS: Amphetamine/Methamp Scrn,U Negative (Negative); Barbiturate Screen,Urine Negative (Negative); Benzodiazepines Screen,Urine Negative (Negative); Benzoylecgonine Screen, Ur Negative (Negative); Fentanyl Screen,Urine Negative (Negative); Opiate Screen,Urine Negative (Negative); THC Screen,Urine Negative (Negative)
[2025-02-22 02:40] LABS: Basophils # (Auto) 0.0 Thou/mm3 (0.0-0.2); Basophils % (Auto) 1 % (0-2.5); Eosinophils # (Auto) 0.0 Thou/mm3 (0.0-0.5); Eosinophils % (Auto) 1 % (0-10); Hematocrit 34.3 % (36.0-46.0); Hemoglobin 11.5 g/dL (12.0-16.0); Immature Granulocytes Auto 0.02 Thou/mm3 (0.00-0.00); Lymphocytes # (Auto) 2.8 Thou/mm3 (1.0-4.8); Lymphocytes % (Auto) 48 % (10-50); Mean Corpuscular HGB Conc 33.5 g/dl (31.0-37.0); Mean Corpuscular Hemoglobin 34.1 pg (25.0-35.0); Mean Corpuscular Volume 102 fL (80-100); Monocytes # (Auto) 0.4 Thou/mm3 (0.0-0.8); Monocytes % (Auto) 6 % (0-12); Neutrophils # (Auto) 2.6 Thou/mm3 (1.8-7.7); Neutrophils % (Auto) 44 % (37-80); Nucleated Red Blood Cell # 0.00 Thou/mm3 (0.00-0.00); Nucleated Red Blood Cell % 0 /100 WBC (0); Platelet Count 173 Thou/mm3 (140-440); RDW Standard Deviation 57.1 fL (36.4-46.3); Red Blood Count 3.37 Miln/mm3 (4.00-5.20); White Blood Count 5.8 Thou/mm3 (3.6-11.0)
[2025-02-22 04:12] LABS: Alanine Aminotransferase 72 U/L (10-49); Albumin, Serum 4.0 gm/dL (3.5-5.0); Albumin/Globulin Ratio 1.4 (1.2-2.2); Alcohol, Blood Medical 330.3 mg/dL (0-10.0); Alkaline Phosphatase 80 U/L (46-116); Anion Gap 13 (7-16); Aspartate Amino Transferase 129 U/L (0-34); BUN/Creatinine Ratio 8 Ratio (12-20); Bilirubin,Total 0.3 mg/dL (0.3-1.2); Blood Urea Nitrogen < 5 mg/dL (9-23); Calcium 9.0 mg/dL (8.3-10.6); Calcium (Corrected) 9.0 mg/dL (8.5-10.1); Carbon Dioxide 23.2 mMol/L (20.0-31.0); Chloride 112 mMol/L (98-107); Creatinine (Component) 0.6 mg/dL (0.6-1.3); Estimated Creatinine Clearance 145.2 mL/min (>60); Globulin 2.9 gm/dL (2.3-3.5); Glucose 101 mg/dL (74-106); Osmolality,Calculated 291 (275-295); Potassium 3.6 mMol/L (3.4-5.1); Sodium 148 mMol/L (136-145); Total Protein 6.9 gm/dL (5.7-8.2); eGFR > 60 See Note
== END 2025-02-22 09:00 | disposition home or self-care (01) ==
LOC: SERX 03:03
PROVIDERS: Emergency Provider Emergency Medicine
DX: R56.9 Unspecified convulsions (principal); F10.10 Alcohol abuse, uncomplicated; Y90.8 Blood alcohol level of 240 mg/100 ml or more
CPT/HCPCS: 36415; 80053; 80307; 80320; 81001; 85025; 99282; G0480